=== PATIENT | female | born 1985 | race African-American/Black ===

== ENCOUNTER 2017-01-08 08:02 | Emergency (ER) | payer SELFPAY ==
[~2017-01-08] VITALS: Ht 167.6 cm; Wt 58.5 kg
[~2017-01-08 08:02] MED LIST: CIPR500T94 PO; FLUC100T7 PO; HYDR-2678 PO; LEVO500T38 PO; METR500T PO; SULF1TAB24 PO
[2017-01-08] MEDS ORDERED: KETOROLAC TROMETHAMINE 30 MG/ML SYRINGE. IV ONE (09:00)
[2017-01-08] MEDS ORDERED: IV NORMAL SALINE 1000ML BAG 1,000 ML IV ONE (09:00)
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
[2017-01-08 09:13] LABS: BARBITURATES NEG (NEG); BENZODIAZEPINES NEG (NEG); CANNABINOIDS NEG (NEG); COCAINE POS (NEG); ETHANOL, URINE NEG (NEG); METHADONE NEG (NEG); OPIATES NEG (NEG); PHENCYCLIDINE POS (NEG)
[2017-01-08 09:30] LABS: BASO # 0.1 x10^3/uL (0.0-0.2); BASO % 1 % (0-3); EOS % 2 % (0-3); HEMATOCRIT 36.3 % (36.0-47.0); HEMOGLOBIN 12.3 g/dL (12.0-15.5); LYMPH # 2.5 x10^3/uL (1.0-4.8); LYMPH % 24 % (24-48); MEAN CORPUSCULAR HEMOGLOBIN 32 pg (25-35); MEAN CORPUSCULAR HGB CONC 34 g/dL (31-37); MEAN CORPUSCULAR VOLUME 93 fL (79-100); MONO % 5 % (0-9); NEUT % 68 % (31-73); PLATELET COUNT 631 x10^3/uL (140-400); RED BLOOD COUNT 3.89 x10^6/uL (3.50-5.40); RED CELL DISTRIBUTION WIDTH 15.1 % (11.5-14.5); WHITE BLOOD COUNT 10.7 x10^3/uL (4.0-11.0)
--- NOTE | 2017-01-08 09:32 | ACF ---
Admit Criteria Forms Admit Criteria Forms Admit Criteria Forms INTESTINAL OBSTRUCTION Clinical Indications for Admission to Inpatient Care (Place 'X' for any and all applicable criteria): Admission is indicated for ANY ONE of the following (1)(2)(3)(4)(5): [X]I. Partial bowel obstruction [ ]II. Complete bowel obstruction Extended stay beyond goal length of stay may be needed for(1)(4)(12(: [ ]a) Identified etiology (eg, hernia, volvulus, cancer with obstruction) requiring intervention [ ]b) Gallstone ileus [ ]c) Surgical intervention [ ]d) Acute comorbid illness (eg, electrolyte imbalance, hypovolemia, renal failure) The original [employer] content created by [employer] has been revised. The portions of the content which have been revised are identified through the use of italic text or in bold, and [facility] has neither reviewed nor approved the modified material. All other unmodified content is copyright [employer] [employer]. Please see references footnoted in the original [employer] edition 2016 TIARRA SALMERON Jan 08, 2017 09:32
[2017-01-08 09:33] LABS: OBC FLU VALID
[2017-01-08 09:41] LABS: CREATININE 1.2 mg/dL (0.6-1.0); GFR 62.6
[2017-01-08 09:46] LABS: ALBUMIN 3.5 g/dL (3.4-5.0); ALBUMIN/GLOBULIN RATIO 1.2 (1.0-1.7); TOTAL BILIRUBIN 0.3 mg/dL (0.2-1.0); TOTAL PROTEIN 6.5 g/dL (6.4-8.2)
--- NOTE | 2017-01-08 09:53 | RAD ---
Chest, 2 views, 01/08/2017: History: Cough, congestion, fever The heart size is normal. No pulmonary infiltrates are seen. There is no evidence of pleural fluid. IMPRESSION: No acute cardiopulmonary abnormality is detected.
[2017-01-08] MEDS ORDERED: METR500T PO (09:59)
[2017-01-08] MEDS ORDERED: AZIT250T PO (09:59)
[2017-01-08 10:06] VITALS: BP 129/82
== END 2017-01-08 10:03 | disposition home or self-care (01) ==
LOC: ER 08:02
DX: N76.0 Acute vaginitis (principal); N39.0 Urinary tract infection, site not specified; R05 Cough; R50.9 Fever, unspecified; F12.10 Cannabis abuse, uncomplicated; F16.10 Hallucinogen abuse, uncomplicated; Z88.8 Allergy status to other drugs, medicaments and biological substances; B96.89 Other specified bacterial agents as the cause of diseases classified elsewhere
CPT/HCPCS: 36415; 71020; 80053; 81025; 85027; 87491; 87591; 87804; 96361; 96374; 99285; G0481; J1885; J7030; Q0111

== ENCOUNTER 2017-04-22 13:25 | Emergency (ER) | payer SELFPAY ==
[~2017-04-22] VITALS: Ht 167.6 cm; Wt 54.4 kg
[~2017-04-22 13:25] MED LIST changes: +AZIT250T PO; -LEVO500T38 PO; +LEVO500T59 PO
[2017-04-22 13:30] VITALS: BP 114/58
[2017-04-22 14:13] LABS: BILIRUBIN,URINE NEGATIVE (NEG); GLUCOSE,URINE NEGATIVE (NEG); NITRITE,URINE NEGATIVE (NEG); PH,URINE 6.5; PROTEIN,URINE 30 mg/dL (NEG-TRACE); UROBILINOGEN,URINE 0.2 mg/dL (0.2 mg/dL)
[2017-04-22 14:35] LABS: BACTERIA,URINE MODERATE /HPF (0-FEW); RBC,URINE 0 /HPF (0-2); SQUAMOUS EPITHELIAL CELL,UR MANY /LPF
--- NOTE | 2017-04-22 14:53 | RAD ---
Indication bilateral flank pain. Grayscale imaging targeted to the kidneys was performed. The right kidney measures 12.1 x 4.4 x 3.4 cm and appears normal. No hydronephrosis or mass is seen. The left kidney measures 11.1 x 4.1 x 5.7 cm and also appears normal showing no evidence of hydronephrosis or mass. The bladder was incompletely distended and poorly evaluated on this exam. IMPRESSION: Normal morphologic appearance of the kidneys
[2017-04-22] MEDS ORDERED: METR500T PO (15:04)
[2017-04-22] MEDS ORDERED: NITR100C62 PO (15:04)
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
[2017-04-22] MEDS ORDERED: cefTRIAXone IM 250 MG VIAL IM ONE (15:15)
[2017-04-22] MEDS ORDERED: metroNIDAZOLE 500 MG TABLET PO ONE (15:15)
[2017-04-22] MEDS ORDERED: AZITHROMYCIN 250 MG TABLET. PO ONE (15:15)
== END 2017-04-22 15:45 | disposition home or self-care (01) ==
LOC: ER 13:25
DX: N39.0 Urinary tract infection, site not specified (principal); N76.0 Acute vaginitis; B96.89 Other specified bacterial agents as the cause of diseases classified elsewhere; F14.10 Cocaine abuse, uncomplicated; F16.10 Hallucinogen abuse, uncomplicated; F12.10 Cannabis abuse, uncomplicated; Z88.8 Allergy status to other drugs, medicaments and biological substances
CPT/HCPCS: 76770; 81001; 81025; 87086; 87491; 87591; 96372; 99285; J0696; Q0111; Q0144

== ENCOUNTER 2017-10-20 11:53 | Emergency (ER) | payer OTHER ==
[~2017-10-20] VITALS: Ht 167.6 cm; Wt 56.7 kg
[~2017-10-20 11:53] MED LIST changes: +NITR100C62 PO
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
[2017-10-20] MEDS ORDERED: IV NORMAL SALINE 1000ML BAG 1,000 ML IV SCH (12:41)
[2017-10-20 13:02] LABS: BILIRUBIN,URINE SMALL (NEG); GLUCOSE,URINE NEGATIVE (NEG); NITRITE,URINE NEGATIVE (NEG); PROTEIN,URINE >=300 mg/dL (NEG-TRACE); UROBILINOGEN,URINE 0.2 mg/dL (0.2 mg/dL)
[2017-10-20 13:19] LABS: BACTERIA,URINE MODERATE /HPF (0-FEW); SQUAMOUS EPITHELIAL CELL,UR MANY /LPF
[2017-10-20 13:32] LABS: BASO # 0.1 x10^3/uL (0.0-0.2); BASO % 0 % (0-3); EOS % 1 % (0-3); HEMATOCRIT 39.2 % (36.0-47.0); HEMOGLOBIN 13.2 g/dL (12.0-15.5); LYMPH # 2.3 x10^3/uL (1.0-4.8); LYMPH % 15 % (24-48); MEAN CORPUSCULAR HEMOGLOBIN 32 pg (25-35); MEAN CORPUSCULAR HGB CONC 34 g/dL (31-37); MEAN CORPUSCULAR VOLUME 96 fL (79-100); MONO % 4 % (0-9); NEUT % 81 % (31-73); PLATELET COUNT 452 x10^3/uL (140-400); RED BLOOD COUNT 4.08 x10^6/uL (3.50-5.40); RED CELL DISTRIBUTION WIDTH 13.7 % (11.5-14.5)
[2017-10-20] MEDS: MORPHINE SULFATE 4 MG/ML DISP.SYRIN. IV/SQ PRN ×2 (13:39→14:24)
[2017-10-20] MEDS ORDERED: AZITHROMYCIN 250 MG TABLET. PO ONE (14:00)
[2017-10-20] MEDS ORDERED: cefTRIAXone IM 250 MG VIAL IM ONE (14:00)
[2017-10-20 14:11] LABS: NEG OBC SER NEG; POS OBC SER POS
[2017-10-20 14:12] LABS: CALCIUM 9.3 mg/dL (8.5-10.1); CREATININE 0.9 mg/dL (0.6-1.0); GFR 87.3; POTASSIUM 3.8 mmol/L (3.5-5.1)
[2017-10-20 14:18] LABS: ALBUMIN 3.9 g/dL (3.4-5.0); DIRECT BILIRUBIN 0.1 mg/dL (0.0-0.2); TOTAL BILIRUBIN 0.5 mg/dL (0.2-1.0); TOTAL PROTEIN 7.1 g/dL (6.4-8.2)
[2017-10-20 14:30] VITALS: BP 121/76
[2017-10-20] MEDS ORDERED: METR500T PO (14:43)
[2017-10-20] MEDS ORDERED: metroNIDAZOLE 500 MG TABLET PO ONE (15:00)
[2017-10-20 15:05] LABS: % BASOS 1 % (0-3); % EOS 1 % (0-5); PLT ESTIMATE INCREASED (ADEQUATE)
== END 2017-10-20 15:14 | disposition home or self-care (01) ==
LOC: ER 11:53
DX: A59.9 Trichomoniasis, unspecified (principal); F12.10 Cannabis abuse, uncomplicated; F14.10 Cocaine abuse, uncomplicated; F16.10 Hallucinogen abuse, uncomplicated; Z88.4 Allergy status to anesthetic agent
CPT/HCPCS: 36415; 80048; 80076; 81001; 81025; 84703; 85007; 85025; 87086; 87491; 87591; 96361; 96372; 96374; 96376; 99284; J0696; J2270; J7030; Q0111; Q0144

== ENCOUNTER 2018-10-02 08:32 | Emergency (ER) | payer OTHER ==
[~2018-10-02] VITALS: Ht 165.1 cm; Wt 54.5 kg
[2018-10-02 08:35] VITALS: BP 126/84
[2018-10-02] MEDS ORDERED: IV NORMAL SALINE 1000ML BAG 1,000 ML IV SCH (09:21)
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
[2018-10-02 09:40] LABS: BARBITURATES NEG (NEG); BENZODIAZEPINES NEG (NEG); CANNABINOIDS NEG (NEG); COCAINE POS (NEG); METHADONE NEG (NEG); OPIATES NEG (NEG); PHENCYCLIDINE POS (NEG)
[2018-10-02 09:41] LABS: AMPHETAMINE/METHAMPHETAMINE NEG (NEG)
[2018-10-02 10:07] LABS: BASO # 0.1 x10^3/uL (0.0-0.2); BASO % 1 % (0-3); EOS # 0.1 x10^3/uL (0.0-0.7); EOS % 1 % (0-3); HEMATOCRIT 36.7 % (36.0-47.0); HEMOGLOBIN 12.4 g/dL (12.0-15.5); LYMPH # 2.3 x10^3/uL (1.0-4.8); LYMPH % 21 % (24-48); MEAN CORPUSCULAR HEMOGLOBIN 33 pg (25-35); MEAN CORPUSCULAR HGB CONC 34 g/dL (31-37); MEAN CORPUSCULAR VOLUME 99 fL (79-100); MONO # 0.5 x10^3/uL (0.0-1.1); MONO % 5 % (0-9); NEUT # 8.2 x10^3uL (1.8-7.7); NEUT % 73 % (31-73); PLATELET COUNT 510 x10^3/uL (140-400); RED BLOOD COUNT 3.72 x10^6/uL (3.50-5.40); RED CELL DISTRIBUTION WIDTH 14.2 % (11.5-14.5); WHITE BLOOD COUNT 11.2 x10^3/uL (4.0-11.0)
[2018-10-02 10:10] LABS: BILIRUBIN,URINE SMALL (NEG); CLARITY,URINE CLEAR; COLOR,URINE AMBER; NITRITE,URINE NEGATIVE (NEG); PROTEIN,URINE >=300 mg/dL (NEG-TRACE); UROBILINOGEN,URINE 0.2 mg/dL (0.2 mg/dL)
[2018-10-02 10:11] LABS: SQUAMOUS EPITHELIAL CELL,UR MANY /LPF
[2018-10-02 10:12] LABS: BACTERIA,URINE MANY /HPF (0-FEW)
[2018-10-02 10:13] LABS: RBC,URINE OCC /HPF (0-2)
[2018-10-02] MEDS ORDERED: cefTRIAXone IM 250 MG VIAL IM ONE (10:15)
[2018-10-02] MEDS ORDERED: AZITHROMYCIN 250 MG TABLET. PO ONE (10:15)
[2018-10-02 10:20] LABS: CALCIUM 9.3 mg/dL (8.5-10.1); CREATININE 0.8 mg/dL (0.6-1.0); GFR 99.4; POTASSIUM 3.9 mmol/L (3.5-5.1)
[2018-10-02 10:26] LABS: ALBUMIN 3.7 g/dL (3.4-5.0); ALBUMIN/GLOBULIN RATIO 1.2 (1.0-1.7); TOTAL BILIRUBIN 0.4 mg/dL (0.2-1.0); TOTAL PROTEIN 6.9 g/dL (6.4-8.2)
--- NOTE | 2018-10-02 10:50 | EKG ---
[facility] [address] [place] [address] Test Date: 2018-10-02 Test Time: 09:51:47 Pat Name: MALOU BRUNER Department: Room: Gender: F Psychiatric Technician: : 1985 Requested By: FANTA JAFFE Order Number: [id number] Reading MD: Zacarias Jade Measurements Intervals Carmen Rate: 66 P: 70 OK: 140 QRS: 70 QRSD: 74 T: 70 QT: 422 QTc: 444 Interpretive Statements SINUS RHYTHM NORMAL ECG Electronically Signed On 10-07-2018 10:40:18 [employer] by Zacarias Jade
[2018-10-02] MEDS ORDERED: METR500T PO (10:54)
[2018-10-04 13:16] LABS: GC PROBE Negative (Negative)
== END 2018-10-02 11:10 | disposition home or self-care (01) ==
LOC: ER 08:32
DX: R42 Dizziness and giddiness (principal); N76.0 Acute vaginitis; B96.89 Other specified bacterial agents as the cause of diseases classified elsewhere; R19.7 Diarrhea, unspecified; Z88.4 Allergy status to anesthetic agent
CPT/HCPCS: 36415; 80053; 80307; 81001; 81025; 83690; 85025; 87086; 87491; 87591; 93005; 96360; 96372; 99284; J0696; J7030; Q0111; Q0144

== ENCOUNTER 2019-07-25 19:21 | Inpatient (IN) | payer OTHER ==
[~2019-07-25] VITALS: Ht 167.6 cm; Wt 59.2 kg
[2019-07-25] MEDS ORDERED: IV NORMAL SALINE 1000ML BAG 1,000 ML IV SCH (19:47)
[2019-07-25 19:57] LABS: BASO # 0.1 x10^3/uL (0.0-0.2); BASO % 0 % (0-3); EOS % 0 % (0-3); HEMATOCRIT 41.3 % (36.0-47.0); HEMOGLOBIN 14.1 g/dL (12.0-15.5); LYMPH % 5 % (24-48); MEAN CORPUSCULAR HEMOGLOBIN 32 pg (25-35); MEAN CORPUSCULAR HGB CONC 34 g/dL (31-37); MEAN CORPUSCULAR VOLUME 94 fL (79-100); MONO % 5 % (0-9); NEUT # 18.4 x10^3/uL (1.8-7.7); NEUT % 90 % (31-73); PLATELET COUNT 498 x10^3/uL (140-400); RED BLOOD COUNT 4.39 x10^6/uL (3.50-5.40); RED CELL DISTRIBUTION WIDTH 14.4 % (11.5-14.5); WHITE BLOOD COUNT 20.5 x10^3/uL (4.0-11.0)
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
[2019-07-25 19:58] LABS: BILIRUBIN,URINE NEGATIVE (NEG); CLARITY,URINE CLOUDY; COLOR,URINE YELLOW; NITRITE,URINE POSITIVE (NEG); PH,URINE 5.5; PROTEIN,URINE 100 mg/dL (NEG-TRACE)
[2019-07-25] MEDS ORDERED: MORPHINE SULFATE 4 MG/ML VIAL. IV ONE ×2 (20:00→21:30)
[2019-07-25] MEDS ORDERED: ACETAMINOPHEN 500 MG TABLET PO ONE (20:00)
[2019-07-25] MEDS ORDERED: ONDANSETRON PF 4 MG/2 ML VIAL. IV ONE (20:00)
[2019-07-25 20:07] LABS: BACTERIA,URINE MODERATE /HPF (0-FEW); SQUAMOUS EPITHELIAL CELL,UR MANY /LPF; WBC,URINE TNTC /HPF (0-4)
[2019-07-25 20:15] LABS: CALCIUM 9.6 mg/dL (8.5-10.1); CREATININE 1.3 mg/dL (0.6-1.0); GFR 56.4; POTASSIUM 3.7 mmol/L (3.5-5.1)
[2019-07-25 20:22] LABS: ALBUMIN 3.3 g/dL (3.4-5.0); ALBUMIN/GLOBULIN RATIO 0.8 (1.0-1.7); TOTAL BILIRUBIN 0.3 mg/dL (0.2-1.0); TOTAL PROTEIN 7.7 g/dL (6.4-8.2)
[2019-07-25 20:28] LABS: % BANDS 4 % (0-9); % LYMPHS 8 % (24-48); % MONOS 2 % (0-10); % SEGS 86 % (35-66); PLT ESTIMATE INCREASED (ADEQUATE)
[2019-07-25] MEDS ORDERED: cefTRIAXone IV Push 1 GM VIAL. IVP ONE (20:45)
--- NOTE | 2019-07-25 21:00 | RAD ---
CT scan of the abdomen and pelvis without contrast 07/25/2019 CLINICAL HISTORY: Right flank pain. TECHNIQUE: Unenhanced, contiguous, 2 mm axial sections were obtained through the abdomen and pelvis. One or more of the following individualized dose reduction techniques were utilized for this study: 1. Automated exposure control. 2. Adjustment of the mA and/or kV according to patient size. 3. Use of iterative reconstruction technique. FINDINGS: Comparison study is dated 09/03/2016. Images through the lung bases are within normal limits. The liver, spleen, pancreas, adrenal glands and left kidney are within normal limits. The right kidney is enlarged. Increased density is seen within the fat surrounding the right kidney. The right ureter is mildly dilated. The right ureter is difficult to follow into the pelvis. No ureteral calculus is seen. The CT findings could reflect recently relieved obstruction of the right collecting system, a nonvisualized distal right ureteral calculus or could be seen with pyelonephritis. Clinical correlation is recommended. The abdominal aorta tapers normally. The gallbladder is contracted. No free fluid or free air is seen within the abdomen. Postsurgical changes are seen involving the abdomen. The appendix is well-visualized and is within normal limits. Images through the pelvis demonstrate the urinary bladder distended with urine. No distal ureteral calculus is seen. No free fluid is seen. Minimal S-shaped curvature of the thoracolumbar spine is seen. IMPRESSION: The right kidney is enlarged. Increased density is seen within the fat surrounding the right kidney. The right ureter is mildly dilated. No ureteral calculus is seen. These CT findings could be seen with recently relieved obstruction of the right collecting system, a nonvisualized distal right ureteral calculus or could be seen with pyelonephritis. Clinical correlation is recommended. Electronically signed by: Lenny García MD (07/25/2019 8:57 PM) [facility]
[2019-07-25 21:12] LABS: INFLUENZA A PATIENT NEGATIVE (NEGATIVE); INFLUENZA B PATIENT NEGATIVE (NEGATIVE)
[2019-07-25] MEDS ORDERED: ONDANSETRON PF 4 MG/2 ML VIAL. IV PRN (21:30)
[2019-07-25] MEDS: IV NORMAL SALINE 1000ML BAG 1,000 ML IV SCH (22:00)
[2019-07-25 22:42] VITALS: BP 114/61
--- NOTE | 2019-07-25 22:50 | NUR ---
Pt. arrived on floor at 2243 by wheelchair from ED. Pt. A&Ox4, RA and is able to walk to bed without help. Pt. doesn't complain of pain. VS stable with HR slightly elevated. Admission questions and assessment done at this time. Call light within reach, bed in lowest position. Will continue to monitor.
[2019-07-26] VITALS (7 sets, daily range): BP systolic 98–113; BP diastolic 54–75
[2019-07-26] MEDS: MORPHINE SULFATE 4 MG/ML VIAL. IV PRN ×5 (01:11→19:36)
--- NOTE | 2019-07-26 03:00 | NUR ---
Pt. screened positive on sepsis screen. ICU nurse was paged and lactic was ordered. Will continue to monitor.
[2019-07-26] MEDS: ACETAMINOPHEN 325 MG TABLET. PO PRN ×3 (03:06→19:36)
[2019-07-26] MEDS ORDERED: MULT1TAB52 PO (06:18)
[2019-07-26] MEDS: IV NORMAL SALINE 1000ML BAG 1,000 ML IV SCH ×2 (06:20→16:56)
[2019-07-26 06:42] LABS: BASO % 0 % (0-3); EOS % 0 % (0-3); HEMATOCRIT 39.3 % (36.0-47.0); HEMOGLOBIN 13.4 g/dL (12.0-15.5); LYMPH # 0.8 x10^3/uL (1.0-4.8); LYMPH % 4 % (24-48); MEAN CORPUSCULAR HEMOGLOBIN 32 pg (25-35); MEAN CORPUSCULAR HGB CONC 34 g/dL (31-37); MEAN CORPUSCULAR VOLUME 95 fL (79-100); MONO # 1.2 x10^3/uL (0.0-1.1); MONO % 6 % (0-9); NEUT % 90 % (31-73); PLATELET COUNT 401 x10^3/uL (140-400); RED BLOOD COUNT 4.15 x10^6/uL (3.50-5.40); RED CELL DISTRIBUTION WIDTH 14.5 % (11.5-14.5)
[2019-07-26 06:49] LABS: CALCIUM 8.8 mg/dL (8.5-10.1); CREATININE 1.1 mg/dL (0.6-1.0); GFR 68.4; POTASSIUM 3.7 mmol/L (3.5-5.1)
[2019-07-26] MEDS ORDERED: PIP/TAZO PER PHARMACY MC PRN (09:30)
[2019-07-26] MEDS ORDERED: oxyCODONE/APAP 5/325 1 TAB TABLET PO PRN (09:30)
--- NOTE | 2019-07-26 11:16 | PDOC1 ---
History and Physical Date of Admission Date of Admission DATE: 07/26/19 TIME: 11:10 Identification/Chief Complaint Chief Complaint cloudy urine,fevers at home Source Source: Caregiver, Chart review, Patient History of Present Illness History of Present Illness 34 AA female, cloudy and foul smelling urine at home with fevers and chills at home, 103 temp. UTI with pyelonephritis on UA and imaging, respectively, Tmax 103 here, some nausea, RT sided flank pain, corresponds to CT findings on rt side.. NKDA, never had UTI or pyelo before. RN calls ar 2/2 GNR positive BC Past Medical History Cardiovascular: No pertinent hx Pulmonary: No pertinent hx GI: No pertinent hx Heme/Onc: No pertinent hx Hepatobiliary: No pertinent hx Psych: No pertinent hx Musculoskeletal: low back pain Rheumatologic: No pertinent hx Infectious disease: Other (trichomoniasis and chlamydia in past) Past Surgical History Past Surgical History: No pertinent history Family History Family History: Hypertension Social History Smoke: No ALCOHOL: none Drugs: None, Other Current Problem List Problem List Problems Medical Problems: (1) Pyelonephritis Status: Acute Current Medications Current Medications Current Medications Sodium Chloride 1,000 ml @ 1,000 mls/hr Q1H IV Last administered on 07/25/19at 20:35; Start 07/25/19 at 19:47; Stop 07/25/19 at 20:46; Status DC Ondansetron HCl (Zofran) 4 mg 1X ONCE IV Last administered on 07/25/19at 20:35; Start 07/25/19 at 20:00; Stop 07/25/19 at 20:01; Status DC Morphine Sulfate (Morphine Sulfate) 4 mg 1X ONCE IV Last administered on 07/25/19at 20:35; Start 07/25/19 at 20:00; Stop 07/25/19 at 20:01; Status DC Acetaminophen (Tylenol) 1,000 mg 1X ONCE PO Last administered on 07/25/19at 20:35; Start 07/25/19 at 20:00; Stop 07/25/19 at 20:01; Status DC Ceftriaxone Sodium (Rocephin) 1 gm 1X ONCE IVP Last administered on 07/25/19at 22:27; Start 07/25/19 at 20:45; Stop 07/25/19 at 20:46; Status DC Morphine Sulfate (Morphine Sulfate) 4 mg 1X ONCE IV Last administered on 07/25/19at 22:27; Start 07/25/19 at 21:30; Stop 07/25/19 at 21:31; Status DC Ondansetron HCl (Zofran) 4 mg PRN Q8HRS PRN IV NAUSEA/VOMITING 1ST CHOICE Last administered on 07/26/19at 03:06; Start 07/25/19 at 21:30; Stop 07/26/19 at 09:25; Status DC Morphine Sulfate (Morphine Sulfate) 4 mg PRN Q2HR PRN IV SEVERE PAIN 7-10 Last administered on 07/26/19at 08:57; Start 07/25/19 at 21:30; Stop 07/26/19 at 21:29 Sodium Chloride 1,000 ml @ 125 mls/hr Q8H IV Last administered on 07/26/19at 06:20; Start 07/25/19 at 22:00; Stop 07/26/19 at 21:59 Acetaminophen (Tylenol) 650 mg PRN Q4HRS PRN PO FEVER Last administered on 07/26/19at 08:57; Start 07/25/19 at 21:30; Stop 07/26/19 at 21:29 Ondansetron HCl (Zofran) 4 mg PRN Q6HRS PRN IV NAUSEA/VOMITING 1ST CHOICE; Start 07/26/19 at 09:30 Oxycodone/ Acetaminophen (Percocet 5/325) 1 tab PRN Q4HRS PRN PO MILD PAIN 1-3; Start 07/26/19 at 09:30 Oxycodone/ Acetaminophen (Percocet 10/325) 1 tab PRN Q4HRS PRN PO MODERATE PAIN, SEVERE PAIN; Start 07/26/19 at 09:30 Piperacillin Sod/ Tazobactam Sod (Zosyn Per Pharmacy) 1 each PRN DAILY PRN MC SEE COMMENTS; Start 07/26/19 at 09:30 Multivitamins (Thera M Plus) 1 tab DAILY PO ; Start 07/26/19 at 10:00 Piperacillin Sod/ Tazobactam Sod 3.375 gm/Sodium Chloride 50 ml @ 100 mls/hr Q6HRS IV ; Start 07/26/19 at 10:00 Active Scripts Active Flagyl (Metronidazole) 500 Mg Tablet 1 Tab PO BID Flagyl (Metronidazole) 500 Mg Tablet 1 Tab PO BID Macrobid 100 Mg Capsule (Nitrofurantoin Monohyd/M-Cryst) 100 Mg Capsule 1 Cap PO BID Flagyl (Metronidazole) 500 Mg Tablet 1 Tab PO BID Zithromax (Azithromycin) 250 Mg Tablet 250 Mg PO DAILY 2 tablets today then 1 tablet daily until gone Flagyl (Metronidazole) 500 Mg Tablet 1 Tab PO BID Bactrim Ds Tablet (Sulfamethoxazole/Trimethoprim) 1 Each Tablet 1 Tab PO BID Flagyl (Metronidazole) 500 Mg Tablet 1 Tab PO BID Reported Multivitamins (Multivitamin) 1 Each Tablet 1 Each PO DAILY Levaquin (Levofloxacin) 500 Mg Tablet 1 Tab PO DAILY Lortab 5-325 mg Tablet (Hydrocodone/Acetaminophen) 1 Each Tablet 1 Tab PO PRN Q6HRS PRN Diflucan (Fluconazole) 100 Mg Tablet 100 Mg PO DAILY Allergies Allergies: Coded Allergies: fentanyl (Verified Adverse Reaction, Intermediate, itching, 08/29/16) ROS Review of System as per hPI< rest of 14 pt neg Physical Exam General: Alert, Oriented X3, Cooperative, No acute distress HEENT: Atraumatic, PERRLA, EOMI Lungs: Clear to auscultation, Normal air movement Heart: S1S2, RRR, no thrills, no gallops, no murmurs Cardiovascular: S1, S2 Breasts: Normal, Rt breast nml w/o mass, Lt breast nml w/o mass, Nipples normal Abdomen: Soft, Other (rt sided flank pain) Extremities: No clubbing, No cyanosis, No edema, Normal pulses, No tenderness/swelling Skin: No rashes, No breakdown, No significant lesion Neuro: Normal gait, Normal speech, Strength at 5/5 X4 ext, Normal tone, Sensation intact, Cranial nerves 3-12 NL, Reflexes 2+ Psych/Mental Status: Mental status NL, Mood NL Vitals Vitals Vital Signs Date Time Temp Pulse Resp B/P (MAP) Pulse Ox O2 Delivery O2 Flow Rate FiO2 07/26/19 08:57 20 Room Air 07/26/19 07:00 98.6 79 102/54 (70) 97 98.6 Labs Labs Laboratory Tests Test 07/25/19 19:34 07/25/19 19:40 07/25/19 19:43 07/25/19 20:43 Urine Collection Type Unknown Urine Color Yellow Urine Clarity Cloudy Urine pH 5.5 Urine Specific [place] 1.020 Urine Protein 100 mg/dL (NEG-TRACE) Urine Glucose (UA) 100 mg/dL (NEG) Urine Ketones (Stick) Trace mg/dL (NEG) Urine Blood Large (NEG) Urine Nitrite Positive (NEG) Urine Bilirubin Negative (NEG) Urine Urobilinogen Dipstick 1.0 mg/dL (0.2 mg/dL) Urine Leukocyte Esterase Large (NEG) Urine RBC 6-10 /HPF (0-2) Urine WBC Tntc /HPF (0-4) Urine Squamous Epithelial Cells Many /LPF Urine Bacteria Moderate /HPF (0-FEW) Urine Mucus Marked /LPF White Blood Count 20.5 x10^3/uL (4.0-11.0) Red Blood Count 4.39 x10^6/uL (3.50-5.40) Hemoglobin 14.1 g/dL (12.0-15.5) Hematocrit 41.3 % (36.0-47.0) Mean Corpuscular Volume 94 fL (79-100) Mean Corpuscular Hemoglobin 32 pg (25-35) Mean Corpuscular Hemoglobin Concent 34 g/dL (31-37) Red Cell Distribution Width 14.4 % (11.5-14.5) Platelet Count 498 x10^3/uL (140-400) Neutrophils (%) (Auto) 90 % (31-73) Lymphocytes (%) (Auto) 5 % (24-48) Monocytes (%) (Auto) 5 % (0-9) Eosinophils (%) (Auto) 0 % (0-3) Basophils (%) (Auto) 0 % (0-3) Neutrophils # (Auto) 18.4 x10^3/uL (1.8-7.7) Lymphocytes # (Auto) 1.0 x10^3/uL (1.0-4.8) Monocytes # (Auto) 1.0 x10^3/uL (0.0-1.1) Eosinophils # (Auto) 0.0 x10^3/uL (0.0-0.7) Basophils # (Auto) 0.1 x10^3/uL (0.0-0.2) Segmented Neutrophils % 86 % (35-66) Band Neutrophils % 4 % (0-9) Lymphocytes % 8 % (24-48) Monocytes % 2 % (0-10) Platelet Estimate Increased (ADEQUATE) Sodium Level 137 mmol/L (136-145) Potassium Level 3.7 mmol/L (3.5-5.1) Chloride Level 101 mmol/L (98-107) Carbon Dioxide Level 25 mmol/L (21-32) Anion Gap 11 (6-14) Blood Urea Nitrogen 7 mg/dL (7-20) Creatinine 1.3 mg/dL (0.6-1.0) Estimated GFR (Cockcroft-Gault) 56.4 BUN/Creatinine Ratio 5 (6-20) Glucose Level 148 mg/dL (70-99) Calcium Level 9.6 mg/dL (8.5-10.1) Total Bilirubin 0.3 mg/dL (0.2-1.0) Aspartate Amino Transf (AST/SGOT) 10 U/L (15-37) Alanine Aminotransferase (ALT/SGPT) 12 U/L (14-59) Alkaline Phosphatase 90 U/L (46-116) Total Protein 7.7 g/dL (6.4-8.2) Albumin 3.3 g/dL (3.4-5.0) Albumin/Globulin Ratio 0.8 (1.0-1.7) Lipase 61 U/L (73-393) Bedside Urine HCG, Qualitative Hcg negative (Negative) Influenza Type A Antigen Negative (NEGATIVE) Influenza Type B Antigen Negative (NEGATIVE) Test 07/26/19 06:20 White Blood Count 21.0 x10^3/uL (4.0-11.0) Red Blood Count 4.15 x10^6/uL (3.50-5.40) Hemoglobin 13.4 g/dL (12.0-15.5) Hematocrit 39.3 % (36.0-47.0) Mean Corpuscular Volume 95 fL (79-100) Mean Corpuscular Hemoglobin 32 pg (25-35) Mean Corpuscular Hemoglobin Concent 34 g/dL (31-37) Red Cell Distribution Width 14.5 % (11.5-14.5) Platelet Count 401 x10^3/uL (140-400) Neutrophils (%) (Auto) 90 % (31-73) Lymphocytes (%) (Auto) 4 % (24-48) Monocytes (%) (Auto) 6 % (0-9) Eosinophils (%) (Auto) 0 % (0-3) Basophils (%) (Auto) 0 % (0-3) Neutrophils # (Auto) 19.0 x10^3/uL (1.8-7.7) Lymphocytes # (Auto) 0.8 x10^3/uL (1.0-4.8) Monocytes # (Auto) 1.2 x10^3/uL (0.0-1.1) Eosinophils # (Auto) 0.0 x10^3/uL (0.0-0.7) Basophils # (Auto) 0.0 x10^3/uL (0.0-0.2) Sodium Level 136 mmol/L (136-145) Potassium Level 3.7 mmol/L (3.5-5.1) Chloride Level 103 mmol/L (98-107) Carbon Dioxide Level 21 mmol/L (21-32) Anion Gap 12 (6-14) Blood Urea Nitrogen 7 mg/dL (7-20) Creatinine 1.1 mg/dL (0.6-1.0) Estimated GFR (Cockcroft-Gault) 68.4 Glucose Level 126 mg/dL (70-99) Lactic Acid Level 0.5 mmol/L (0.4-2.0) Calcium Level 8.8 mg/dL (8.5-10.1) Laboratory Tests Test 07/25/19 19:34 07/25/19 19:40 07/25/19 19:43 07/25/19 20:43 Urine Collection Type Unknown Urine Color Yellow Urine Clarity Cloudy Urine pH 5.5 Urine Specific [place] 1.020 Urine Protein 100 mg/dL (NEG-TRACE) Urine Glucose (UA) 100 mg/dL (NEG) Urine Ketones (Stick) Trace mg/dL (NEG) Urine Blood Large (NEG) Urine Nitrite Positive (NEG) Urine Bilirubin Negative (NEG) Urine Urobilinogen Dipstick 1.0 mg/dL (0.2 mg/dL) Urine Leukocyte Esterase Large (NEG) Urine RBC 6-10 /HPF (0-2) Urine WBC Tntc /HPF (0-4) Urine Squamous Epithelial Cells Many /LPF Urine Bacteria Moderate /HPF (0-FEW) Urine Mucus Marked /LPF White Blood Count 20.5 x10^3/uL (4.0-11.0) Red Blood Count 4.39 x10^6/uL (3.50-5.40) Hemoglobin 14.1 g/dL (12.0-15.5) Hematocrit 41.3 % (36.0-47.0) Mean Corpuscular Volume 94 fL (79-100) Mean Corpuscular Hemoglobin 32 pg (25-35) Mean Corpuscular Hemoglobin Concent 34 g/dL (31-37) Red Cell Distribution Width 14.4 % (11.5-14.5) Platelet Count 498 x10^3/uL (140-400) Neutrophils (%) (Auto) 90 % (31-73) Lymphocytes (%) (Auto) 5 % (24-48) Monocytes (%) (Auto) 5 % (0-9) Eosinophils (%) (Auto) 0 % (0-3) Basophils (%) (Auto) 0 % (0-3) Neutrophils # (Auto) 18.4 x10^3/uL (1.8-7.7) Lymphocytes # (Auto) 1.0 x10^3/uL (1.0-4.8) Monocytes # (Auto) 1.0 x10^3/uL (0.0-1.1) Eosinophils # (Auto) 0.0 x10^3/uL (0.0-0.7) Basophils # (Auto) 0.1 x10^3/uL (0.0-0.2) Segmented Neutrophils % 86 % (35-66) Band Neutrophils % 4 % (0-9) Lymphocytes % 8 % (24-48) Monocytes % 2 % (0-10) Platelet Estimate Increased (ADEQUATE) Sodium Level 137 mmol/L (136-145) Potassium Level 3.7 mmol/L (3.5-5.1) Chloride Level 101 mmol/L (98-107) Carbon Dioxide Level 25 mmol/L (21-32) Anion Gap 11 (6-14) Blood Urea Nitrogen 7 mg/dL (7-20) Creatinine 1.3 mg/dL (0.6-1.0) Estimated GFR (Cockcroft-Gault) 56.4 BUN/Creatinine Ratio 5 (6-20) Glucose Level 148 mg/dL (70-99) Calcium Level 9.6 mg/dL (8.5-10.1) Total Bilirubin 0.3 mg/dL (0.2-1.0) Aspartate Amino Transf (AST/SGOT) 10 U/L (15-37) Alanine Aminotransferase (ALT/SGPT) 12 U/L (14-59) Alkaline Phosphatase 90 U/L (46-116) Total Protein 7.7 g/dL (6.4-8.2) Albumin 3.3 g/dL (3.4-5.0) Albumin/Globulin Ratio 0.8 (1.0-1.7) Lipase 61 U/L (73-393) Bedside Urine HCG, Qualitative Hcg negative (Negative) Influenza Type A Antigen Negative (NEGATIVE) Influenza Type B Antigen Negative (NEGATIVE) Test 07/26/19 06:20 White Blood Count 21.0 x10^3/uL (4.0-11.0) Red Blood Count 4.15 x10^6/uL (3.50-5.40) Hemoglobin 13.4 g/dL (12.0-15.5) Hematocrit 39.3 % (36.0-47.0) Mean Corpuscular Volume 95 fL (79-100) Mean Corpuscular Hemoglobin 32 pg (25-35) Mean Corpuscular Hemoglobin Concent 34 g/dL (31-37) Red Cell Distribution Width 14.5 % (11.5-14.5) Platelet Count 401 x10^3/uL (140-400) Neutrophils (%) (Auto) 90 % (31-73) Lymphocytes (%) (Auto) 4 % (24-48) Monocytes (%) (Auto) 6 % (0-9) Eosinophils (%) (Auto) 0 % (0-3) Basophils (%) (Auto) 0 % (0-3) Neutrophils # (Auto) 19.0 x10^3/uL (1.8-7.7) Lymphocytes # (Auto) 0.8 x10^3/uL (1.0-4.8) Monocytes # (Auto) 1.2 x10^3/uL (0.0-1.1) Eosinophils # (Auto) 0.0 x10^3/uL (0.0-0.7) Basophils # (Auto) 0.0 x10^3/uL (0.0-0.2) Sodium Level 136 mmol/L (136-145) Potassium Level 3.7 mmol/L (3.5-5.1) Chloride Level 103 mmol/L (98-107) Carbon Dioxide Level 21 mmol/L (21-32) Anion Gap 12 (6-14) Blood Urea Nitrogen 7 mg/dL (7-20) Creatinine 1.1 mg/dL (0.6-1.0) Estimated GFR (Cockcroft-Gault) 68.4 Glucose Level 126 mg/dL (70-99) Lactic Acid Level 0.5 mmol/L (0.4-2.0) Calcium Level 8.8 mg/dL (8.5-10.1) VTE Prophylaxis Ordered VTE Prophylaxis Devices: Yes VTE Pharmacological Prophylaxi: Yes Assessment/Plan Assessment/Plan SYmptomatic UTI with pyelonephritis, DIlated RT ureter- no radio opaque stone, need to r.o radioluscent stone with sono GNR bacteremia 2/2 bottles PLAN: Admit 2 mN< MEd surg floor ok Zosyn ID consult FOllow BC - ID and sensitivities OK for reg diet [place] control CHeck sono for radioluscent stone, RT ureter is dilated Dw her FUll code no real home meds to reocncile STERLING NORTON MD Jul 26, 2019 11:16
[2019-07-26] MEDS: PROCHLORPERAZINE 10 MG/2 ML VIAL. IV PRN (12:08)
[2019-07-26] MEDS: PIPERACILLIN/TAZOBACTAM 3.375 GM in IV NORMAL SALINE 50ML 50 ML IV SCH ×3 (12:09→23:34)
[2019-07-26] MEDS: MULTIVITAMIN with MINERAL TABLET. PO SCH (12:10)
[2019-07-26] MEDS: oxyCODONE/APAP 10/325 1 TAB TABLET PO PRN ×3 (12:10→21:03)
--- NOTE | 2019-07-26 13:05 | CONS ---
DATE OF CONSULTATION: 07/26/2019 INFECTIOUS DISEASE CONSULT REFERRING PHYSICIAN: Blanca Devine MD REASON FOR CONSULTATION: Gram-negative sepsis. HISTORY OF PRESENT ILLNESS: A 34-year-old -[place] female usually in normal health, with no significant past medical history, presented to the ER with fevers, chills, nausea, cloudy urine, burning while passing urine. She was found to have a temperature of 103, white count was elevated, mild MARIN. Urine positive for leukocyte esterase, wbc's too numerous to count. Blood culture positive 2 out of 2 with gram-negative jaelyn. CT abdomen shows a right kidney is enlarged, increased density seen in the fat surrounding the right kidney, the right ureter is mildly dilated, no ureteral calculus is seen. The CT finding should be seen with recently relieved obstruction of the right collecting system or non-visualized distal right ureteral calculus or could be seen with pyelonephritis. The patient was started on IV Zosyn. ID consult has been requested for antibiotic management. The patient has chills, fever is improving, still has some nausea, no vomiting, denies any abdominal pain, continues to still have burning while passing urine, no blood in urine. No recent antibiotics. No recent procedures. PAST MEDICAL HISTORY: Chronic low back pain; history of trichomoniasis; chlamydia otherwise negative. No history of renal stone. PAST SURGICAL HISTORY: None. FAMILY HISTORY: Renal disease, hypertension. SOCIAL HISTORY: Denies smoking. ETOH, none. Drugs, none. CURRENT MEDICATIONS: IV Zosyn. Other medications reviewed in medication list. The patient got a dose of ceftriaxone in the ER. ALLERGIES: FENTANYL, CAUSING ITCHING. REVIEW OF SYSTEMS: Negative except for above in HPI. PHYSICAL EXAMINATION: VITAL SIGNS: T-max 103.2, current temperature 98.5; pulse 84; respiratory rate 16; blood pressure 100/62; oxygen saturation 98% on room air. GENERAL: Alert and oriented x 3 female, lying in bed comfortably, in no acute distress, cooperative, pleasant. HEENT: Normocephalic, atraumatic. Anicteric. No thrush. NECK: Supple. No JVD. LUNGS: Clear bilaterally. No wheezing. HEART: S1, S2. No gallops, murmurs or rubs. ABDOMEN: Soft, nontender, nondistended. No rebound, no guarding. EXTREMITIES: No edema, no cyanosis, no clubbing. BACK: Reveals normal curvature. No CVA tenderness. DERMATOLOGIC: Warm, dry. No generalized rash. Multiple tattoos. NEUROLOGIC: Alert and oriented x 3. Grossly nonfocal. PSYCHIATRIC: Cooperative. Appropriate mood and affect. LABORATORY DATA: WBC 21, was 20.5; hemoglobin 13.4; hematocrit 39.3; platelets 401; neutrophils 90%. Sodium 136; potassium 3.7; chloride 103; bicarbonate 21; BUN 7; creatinine 1.1, was 1.3; glucose 126. Lactate 0.5. Albumin 3.3. UA shows large leukocyte esterase, wbc's too numerous to count. Beta hCG negative. Influenza screen negative. Blood culture on 07/25/2019, 2 out of 2 bottles positive for gram-negative jaelyn; ID and NOLBERTO pending at this time. IMAGING: CT abdomen and pelvis as above. IMPRESSION: 1. Fever. 2. Leukocytosis. 3. Gram-negative sepsis, source genitourinary. 4. Urinary tract infection. 5. Likely nephrolithiasis. 6. Possible pyelonephritis. 7. Acute kidney injury, improving. 8. Nausea and vomiting, improving. RECOMMENDATIONS: 1. Continue Zosyn. 2. Repeat blood cultures. 3. Follow up ID and NOLBERTO of gram-negative jaelyn in blood. 4. Continue supportive care. 5. Discussed with family at bedside. Thank you, Dr. Devine, for consultation Infectious Disease to participate in this patient's care. We will follow along with you. EMIL AVILA MD DR: OLIVA/alycia JOB#: [id number] / [id number]
[2019-07-26] MEDS: ONDANSETRON PF 4 MG/2 ML VIAL. IV PRN (16:54)
[2019-07-26] MEDS: LACTOBACILLUS RHAMNOSUS GG 1 CAPSULE. PO SCH (21:00)
[2019-07-27] MEDS: oxyCODONE/APAP 10/325 1 TAB TABLET PO PRN ×5 (03:19→22:14)
[2019-07-27 03:22] VITALS: BP 123/71
[2019-07-27] MEDS: PIPERACILLIN/TAZOBACTAM 3.375 GM in IV NORMAL SALINE 50ML 50 ML IV SCH ×3 (05:31→18:10)
[2019-07-27 07:00] VITALS: BP 111/63
--- NOTE | 2019-07-27 07:47 | RAD ---
RENAL COMPLETE BILATERAL History: Pyelonephritis Comparison: July 25, 2019 CT exam and renal ultrasound April 22, 2017 Findings: Multiple sonographic images of the kidneys and urinary bladder submitted. Right kidney measured 13 x 5.7 x 4.1 cm. Left kidney measured 11.2 x 5.4 x 4.5 cm. There is no hydronephrosis of either kidney. There is a focus of different echogenicity which is somewhat more hyperechoic of the mid right kidney. Ureteral jets are seen bilaterally in the urinary bladder lumen. Impression: 1. There is no hydronephrosis of either kidney. There is a focus of relative increased echogenicity of the mid right kidney and right kidney is larger than the left, could be seen with focal pyelonephritis. Electronically signed by: Renan Olivo MD (07/27/2019 7:44 AM) [id number]
[2019-07-27] MEDS: ONDANSETRON PF 4 MG/2 ML VIAL. IV PRN ×2 (08:16→18:10)
[2019-07-27] MEDS: MULTIVITAMIN with MINERAL TABLET. PO SCH (08:16)
[2019-07-27] MEDS: LACTOBACILLUS RHAMNOSUS GG 1 CAPSULE. PO SCH ×2 (08:17→21:24)
--- NOTE | 2019-07-27 08:47 | PDOC ---
PROGRESS NOTES Chief Complaint Chief Complaint SYmptomatic UTI with pyelonephritis, DIlated RT ureter- no radio opaque/radio luscent stone GNR bacteremia 2/2 bottles History of Present Illness History of Present Illness looks better CLaims still low grade temps but i dont see one charted still some nausea but does not want to back down on diet "she picks on which food to eat" WBC normal, ID on board, cont iV zosyn 2/2 bottles GNR US: 1. There is no hydronephrosis of either kidney. There is a focus of relative increased echogenicity of the mid right kidney and right kidney is larger than the left, could be seen with focal pyelonephritis. PLAAN: Await GNR ID and sensitivities COnt zosyn COnt reg diet and nausea meds Vitals Vitals Vital Signs Date Time Temp Pulse Resp B/P (MAP) Pulse Ox O2 Delivery O2 Flow Rate FiO2 07/27/19 08:17 20 Room Air 07/27/19 07:00 98.5 86 111/63 (79) 97 98.5 Physical Exam General: Alert, Oriented X3, Cooperative, No acute distress Lungs: Clear Abdomen: Soft, Other (rt sided flank pain) Extremities: No clubbing, No cyanosis, No edema, Normal pulses, No tenderness/swelling Skin: No rashes, No breakdown, No significant lesion Review of Systems Review of Systems nausea, minmal flank pain, no fevers, no cp, soa, diarrhea, constipation, emesis Assessment and Plan Assessmemt and Plan Problems Medical Problems: (1) Pyelonephritis Status: Acute Comment Review of Relevant I have reviewed the following items jessenia (where applicable) has been applied. Labs Laboratory Tests Test 07/25/19 19:34 07/25/19 19:40 07/25/19 19:43 07/25/19 20:43 Urine Collection Type Unknown Urine Color Yellow Urine Clarity Cloudy Urine pH 5.5 Urine Specific [place] 1.020 Urine Protein 100 mg/dL (NEG-TRACE) Urine Glucose (UA) 100 mg/dL (NEG) Urine Ketones (Stick) Trace mg/dL (NEG) Urine Blood Large (NEG) Urine Nitrite Positive (NEG) Urine Bilirubin Negative (NEG) Urine Urobilinogen Dipstick 1.0 mg/dL (0.2 mg/dL) Urine Leukocyte Esterase Large (NEG) Urine RBC 6-10 /HPF (0-2) Urine WBC Tntc /HPF (0-4) Urine Squamous Epithelial Cells Many /LPF Urine Bacteria Moderate /HPF (0-FEW) Urine Mucus Marked /LPF White Blood Count 20.5 x10^3/uL (4.0-11.0) Red Blood Count 4.39 x10^6/uL (3.50-5.40) Hemoglobin 14.1 g/dL (12.0-15.5) Hematocrit 41.3 % (36.0-47.0) Mean Corpuscular Volume 94 fL (79-100) Mean Corpuscular Hemoglobin 32 pg (25-35) Mean Corpuscular Hemoglobin Concent 34 g/dL (31-37) Red Cell Distribution Width 14.4 % (11.5-14.5) Platelet Count 498 x10^3/uL (140-400) Neutrophils (%) (Auto) 90 % (31-73) Lymphocytes (%) (Auto) 5 % (24-48) Monocytes (%) (Auto) 5 % (0-9) Eosinophils (%) (Auto) 0 % (0-3) Basophils (%) (Auto) 0 % (0-3) Neutrophils # (Auto) 18.4 x10^3/uL (1.8-7.7) Lymphocytes # (Auto) 1.0 x10^3/uL (1.0-4.8) Monocytes # (Auto) 1.0 x10^3/uL (0.0-1.1) Eosinophils # (Auto) 0.0 x10^3/uL (0.0-0.7) Basophils # (Auto) 0.1 x10^3/uL (0.0-0.2) Segmented Neutrophils % 86 % (35-66) Band Neutrophils % 4 % (0-9) Lymphocytes % 8 % (24-48) Monocytes % 2 % (0-10) Platelet Estimate Increased (ADEQUATE) Sodium Level 137 mmol/L (136-145) Potassium Level 3.7 mmol/L (3.5-5.1) Chloride Level 101 mmol/L (98-107) Carbon Dioxide Level 25 mmol/L (21-32) Anion Gap 11 (6-14) Blood Urea Nitrogen 7 mg/dL (7-20) Creatinine 1.3 mg/dL (0.6-1.0) Estimated GFR (Cockcroft-Gault) 56.4 BUN/Creatinine Ratio 5 (6-20) Glucose Level 148 mg/dL (70-99) Calcium Level 9.6 mg/dL (8.5-10.1) Total Bilirubin 0.3 mg/dL (0.2-1.0) Aspartate Amino Transf (AST/SGOT) 10 U/L (15-37) Alanine Aminotransferase (ALT/SGPT) 12 U/L (14-59) Alkaline Phosphatase 90 U/L (46-116) Total Protein 7.7 g/dL (6.4-8.2) Albumin 3.3 g/dL (3.4-5.0) Albumin/Globulin Ratio 0.8 (1.0-1.7) Lipase 61 U/L (73-393) Bedside Urine HCG, Qualitative Hcg negative (Negative) Influenza Type A Antigen Negative (NEGATIVE) Influenza Type B Antigen Negative (NEGATIVE) Test 07/26/19 06:20 White Blood Count 21.0 x10^3/uL (4.0-11.0) Red Blood Count 4.15 x10^6/uL (3.50-5.40) Hemoglobin 13.4 g/dL (12.0-15.5) Hematocrit 39.3 % (36.0-47.0) Mean Corpuscular Volume 95 fL (79-100) Mean Corpuscular Hemoglobin 32 pg (25-35) Mean Corpuscular Hemoglobin Concent 34 g/dL (31-37) Red Cell Distribution Width 14.5 % (11.5-14.5) Platelet Count 401 x10^3/uL (140-400) Neutrophils (%) (Auto) 90 % (31-73) Lymphocytes (%) (Auto) 4 % (24-48) Monocytes (%) (Auto) 6 % (0-9) Eosinophils (%) (Auto) 0 % (0-3) Basophils (%) (Auto) 0 % (0-3) Neutrophils # (Auto) 19.0 x10^3/uL (1.8-7.7) Lymphocytes # (Auto) 0.8 x10^3/uL (1.0-4.8) Monocytes # (Auto) 1.2 x10^3/uL (0.0-1.1) Eosinophils # (Auto) 0.0 x10^3/uL (0.0-0.7) Basophils # (Auto) 0.0 x10^3/uL (0.0-0.2) Sodium Level 136 mmol/L (136-145) Potassium Level 3.7 mmol/L (3.5-5.1) Chloride Level 103 mmol/L (98-107) Carbon Dioxide Level 21 mmol/L (21-32) Anion Gap 12 (6-14) Blood Urea Nitrogen 7 mg/dL (7-20) Creatinine 1.1 mg/dL (0.6-1.0) Estimated GFR (Cockcroft-Gault) 68.4 Glucose Level 126 mg/dL (70-99) Lactic Acid Level 0.5 mmol/L (0.4-2.0) Calcium Level 8.8 mg/dL (8.5-10.1) Microbiology 07/25/19 Blood Culture - Final, Complete Medications Current Medications Sodium Chloride 1,000 ml @ 1,000 mls/hr Q1H IV Last administered on 07/25/19 20:35; Start 07/25/19 at 19:47; Stop 07/25/19 at 20:46; Status DC Ondansetron HCl (Zofran) 4 mg 1X ONCE IV Last administered on 07/25/19 20:35; Start 07/25/19 at 20:00; Stop 07/25/19 at 20:01; Status DC Morphine Sulfate (Morphine Sulfate) 4 mg 1X ONCE IV Last administered on 07/25/19 20:35; Start 07/25/19 at 20:00; Stop 07/25/19 at 20:01; Status DC Acetaminophen (Tylenol) 1,000 mg 1X ONCE PO Last administered on 07/25/19 20:35; Start 07/25/19 at 20:00; Stop 07/25/19 at 20:01; Status DC Ceftriaxone Sodium (Rocephin) 1 gm 1X ONCE IVP Last administered on 07/25/19at 22:27; Start 07/25/19 at 20:45; Stop 07/25/19 at 20:46; Status DC Morphine Sulfate (Morphine Sulfate) 4 mg 1X ONCE IV Last administered on 07/25/19at 22:27; Start 07/25/19 at 21:30; Stop 07/25/19 at 21:31; Status DC Ondansetron HCl (Zofran) 4 mg PRN Q8HRS PRN IV NAUSEA/VOMITING 1ST CHOICE Last administered on 07/26/19at 03:06; Start 07/25/19 at 21:30; Stop 07/26/19 at 09:25; Status DC Morphine Sulfate (Morphine Sulfate) 4 mg PRN Q2HR PRN IV SEVERE PAIN 7-10 Last administered on 07/26/19at 19:36; Start 07/25/19 at 21:30; Stop 07/26/19 at 21:29; Status DC Sodium Chloride 1,000 ml @ 125 mls/hr Q8H IV Last administered on 07/26/19at 16:56; Start 07/25/19 at 22:00; Stop 07/26/19 at 21:59; Status DC Acetaminophen (Tylenol) 650 mg PRN Q4HRS PRN PO FEVER Last administered on 07/26/19at 19:36; Start 07/25/19 at 21:30; Stop 07/26/19 at 21:29; Status DC Ondansetron HCl (Zofran) 4 mg PRN Q6HRS PRN IV NAUSEA/VOMITING 1ST CHOICE Last administered on 07/27/19at 08:17; Start 07/26/19 at 09:30 Oxycodone/ Acetaminophen (Percocet 5/325) 1 tab PRN Q4HRS PRN PO MILD PAIN 1-3; Start 07/26/19 at 09:30 Oxycodone/ Acetaminophen (Percocet 10/325) 1 tab PRN Q4HRS PRN PO MODERATE PAIN, SEVERE PAIN Last administered on 07/27/19at 08:17; Start 07/26/19 at 09:30 Piperacillin Sod/ Tazobactam Sod (Zosyn Per Pharmacy) 1 each PRN DAILY PRN MC SEE COMMENTS; Start 07/26/19 at 09:30 Multivitamins (Thera M Plus) 1 tab DAILY PO Last administered on 07/27/19at 08 :17; Start 07/26/19 at 10:00 Piperacillin Sod/ Tazobactam Sod 3.375 gm/Sodium Chloride 50 ml @ 100 mls/hr Q6HRS IV Last administered on 07/27/19at 05:31; Start 07/26/19 at 10:00 Prochlorperazine Edisylate (Compazine) 10 mg PRN Q6HRS PRN IV NAUSEA/VOMITING 2ND CHOICE Last administered on 07/26/19at 12:11; Start 07/26/19 at 12:00 Lactobacillus Rhamnosus (Culturelle) 1 cap BID PO Last administered on 07/27/19at 08:17; Start 07/26/19 at 21:00 Active Scripts Active Flagyl (Metronidazole) 500 Mg Tablet 1 Tab PO BID Flagyl (Metronidazole) 500 Mg Tablet 1 Tab PO BID Macrobid 100 Mg Capsule (Nitrofurantoin Monohyd/M-Cryst) 100 Mg Capsule 1 Cap PO BID Flagyl (Metronidazole) 500 Mg Tablet 1 Tab PO BID Zithromax (Azithromycin) 250 Mg Tablet 250 Mg PO DAILY 2 tablets today then 1 tablet daily until gone Flagyl (Metronidazole) 500 Mg Tablet 1 Tab PO BID Bactrim Ds Tablet (Sulfamethoxazole/Trimethoprim) 1 Each Tablet 1 Tab PO BID Flagyl (Metronidazole) 500 Mg Tablet 1 Tab PO BID Reported Multivitamins (Multivitamin) 1 Each Tablet 1 Each PO DAILY Levaquin (Levofloxacin) 500 Mg Tablet 1 Tab PO DAILY Lortab 5-325 mg Tablet (Hydrocodone/Acetaminophen) 1 Each Tablet 1 Tab PO PRN Q6HRS PRN Diflucan (Fluconazole) 100 Mg Tablet 100 Mg PO DAILY Vitals/I & O Vital Sign - Last 24 Hours 07/26/19 07/26/19 07/26/19 07/26/19 08:57 11:09 12:11 12:11 Temp 98.5 98.5 Pulse 84 Resp 20 16 20 20 B/P (MAP) 100/62 (75) Pulse Ox 98 O2 Delivery Room Air Room Air Room Air Room Air 07/26/19 07/26/19 07/26/19 07/26/19 15:20 16:18 16:55 17:06 Temp 98.7 98.7 Pulse 83 Resp 18 20 20 20 B/P (MAP) 100/62 (75) Pulse Ox 98 O2 Delivery Room Air Room Air Room Air Room Air 07/26/19 07/26/19 07/26/19 07/26/19 17:44 17:57 19:00 19:36 Temp 99.3 99.3 Pulse 97 Resp 20 20 18 B/P (MAP) 98/55 (69) Pulse Ox 96 O2 Delivery Room Air Room Air Room Air Room Air 07/26/19 07/26/19 07/26/19 07/26/19 19:39 19:40 21:03 21:03 Pulse 97 B/P (MAP) 104/57 (73) O2 Delivery Room Air Room Air Room Air Room Air 07/26/19 07/26/19 07/27/19 07/27/19 22:06 22:56 03:19 03:22 Temp 98.2 99.4 98.2 99.4 Pulse 79 93 Resp 18 16 B/P (MAP) 106/58 (74) 123/71 (88) Pulse Ox 97 95 O2 Delivery Room Air Room Air Room Air 07/27/19 07/27/19 07/27/19 04:23 07:00 08:17 Temp 98.5 98.5 Pulse 86 Resp 18 20 B/P (MAP) 111/63 (79) Pulse Ox 97 O2 Delivery Room Air Room Air Room Air Intake and Output 07/26/19 07/26/19 07/27/19 14:59 22:59 06:59 Intake Total 120 ml 240 ml Output Total 950 ml 700 ml Balance -830 ml -460 ml STERLING NORTON MD Jul 27, 2019 08:47
[2019-07-27 09:57] LABS: BASO % 0 % (0-3); EOS # 0.1 x10^3/uL (0.0-0.7); EOS % 1 % (0-3); HEMATOCRIT 39.2 % (36.0-47.0); HEMOGLOBIN 13.2 g/dL (12.0-15.5); LYMPH # 1.4 x10^3/uL (1.0-4.8); LYMPH % 13 % (24-48); MEAN CORPUSCULAR HEMOGLOBIN 32 pg (25-35); MEAN CORPUSCULAR HGB CONC 34 g/dL (31-37); MEAN CORPUSCULAR VOLUME 95 fL (79-100); MONO # 0.7 x10^3/uL (0.0-1.1); MONO % 6 % (0-9); NEUT % 80 % (31-73); PLATELET COUNT 420 x10^3/uL (140-400); RED BLOOD COUNT 4.13 x10^6/uL (3.50-5.40); RED CELL DISTRIBUTION WIDTH 14.8 % (11.5-14.5); WHITE BLOOD COUNT 11.3 x10^3/uL (4.0-11.0)
--- NOTE | 2019-07-27 09:59 | PDOC ---
Infectious Disease Note Subjective: Subjective pt feels better less abdo pain,some nausea, no vomiting fever pattern improving ROS: ROS Negative otherwise. Vital Signs: Vital Signs Vital Signs Date Time Temp Pulse Resp B/P (MAP) Pulse Ox O2 Delivery O2 Flow Rate FiO2 07/27/19 09:32 20 Room Air 07/27/19 07:00 98.5 86 111/63 (79) 97 98.5 Physical Exam: PHYSICAL EXAM GENERAL: Alert and oriented x 3 female, lying in bed comfortably, in no acute distress, cooperative, pleasant. HEENT: Normocephalic, atraumatic. Anicteric. No thrush. NECK: Supple. No JVD. LUNGS: Clear bilaterally. No wheezing. HEART: S1, S2. No gallops, murmurs or rubs. ABDOMEN: Soft, nontender, nondistended. No rebound, no guarding. EXTREMITIES: No edema, no cyanosis, no clubbing. BACK: Reveals normal curvature. No CVA tenderness. DERMATOLOGIC: Warm, dry. No generalized rash. Multiple tattoos. NEUROLOGIC: Alert and oriented x 3. Grossly nonfocal. PSYCHIATRIC: Cooperative. Appropriate mood and affect. Medications: Inpatient Meds: Current Medications Medications (Trade) Dose Ordered Sig/Marc Start Time Stop Time Status Last Admin Dose Admin Acetaminophen (Tylenol) 650 mg PRN Q4HRS PRN 07/25/19 21:30 07/26/19 21:29 DC 07/26/19 19:36 650 MG Ceftriaxone Sodium (Rocephin) 1 gm 1X ONCE 07/25/19 20:45 07/25/19 20:46 DC 07/25/19 22:27 1 GM Lactobacillus Rhamnosus (Culturelle) 1 cap BID 07/26/19 21:00 07/27/19 08:17 1 CAP Morphine Sulfate (Morphine Sulfate) 4 mg PRN Q2HR PRN 07/25/19 21:30 07/26/19 21:29 DC 07/26/19 19:36 4 MG Multivitamins (Thera M Plus) 1 tab DAILY 07/26/19 10:00 07/27/19 08:17 1 TAB Ondansetron HCl (Zofran) 4 mg PRN Q6HRS PRN 07/26/19 09:30 07/27/19 08:17 4 MG Oxycodone/ Acetaminophen (Percocet 10/325) 1 tab PRN Q4HRS PRN 07/26/19 09:30 07/27/19 08:17 1 TAB Oxycodone/ Acetaminophen (Percocet 5/325) 1 tab PRN Q4HRS PRN 07/26/19 09:30 Piperacillin Sod/ Tazobactam Sod (Zosyn Per Pharmacy) 1 each PRN DAILY PRN 07/26/19 09:30 Piperacillin Sod/ Tazobactam Sod 3.375 gm/Sodium Chloride 50 ml @ 100 mls/hr Q6HRS 07/26/19 10:00 07/27/19 05:31 100 MLS/HR Prochlorperazine Edisylate (Compazine) 10 mg PRN Q6HRS PRN 07/26/19 12:00 07/26/19 12:11 10 MG Sodium Chloride 1,000 ml @ 125 mls/hr Q8H 07/25/19 22:00 07/26/19 21:59 DC 07/26/19 16:56 125 MLS/HR Objective: Assessment: 1. Fever. 2. Leukocytosis. 3. Gram-negative bacteremia ID and NOLBERTO pending, source genitourinary. 4. Urinary tract infection.UC pending 5. Likely nephrolithiasis. 6. Possible pyelonephritis.Pt says may have passed a possible stone 7. Acute kidney injury, improving. 8. Nausea and vomiting, improving. Plan: Plan of Care 1. Continue Zosyn. 2. F/U Urine cultures. 3. Follow up ID and NOLBERTO of gram-negative jaelyn in blood. 4. Continue supportive care. EMIL AVILA MD Jul 27, 2019 09:59
[2019-07-27 10:20] LABS: ALBUMIN 2.4 g/dL (3.4-5.0); ALBUMIN/GLOBULIN RATIO 0.7 (1.0-1.7); CALCIUM 8.7 mg/dL (8.5-10.1); CREATININE 0.9 mg/dL (0.6-1.0); GFR 86.2; POTASSIUM 3.3 mmol/L (3.5-5.1); TOTAL BILIRUBIN 0.3 mg/dL (0.2-1.0)
[2019-07-27 10:45] VITALS: BP 109/50
[2019-07-27] MEDS: PROCHLORPERAZINE 10 MG/2 ML VIAL. IV PRN (12:20)
[2019-07-27 15:00] VITALS: BP 110/58
[2019-07-27 18:45] VITALS: BP 103/59
[2019-07-27 23:00] VITALS: BP 112/69
[2019-07-28] MEDS: PIPERACILLIN/TAZOBACTAM 3.375 GM in IV NORMAL SALINE 50ML 50 ML IV SCH ×4 (00:06→17:43)
[2019-07-28] MEDS: ONDANSETRON PF 4 MG/2 ML VIAL. IV PRN ×3 (00:07→20:21)
[2019-07-28 03:11] VITALS: BP 138/78
[2019-07-28] MEDS: oxyCODONE/APAP 10/325 1 TAB TABLET PO PRN (06:14)
[2019-07-28 07:00] VITALS: BP 98/59
[2019-07-28] MEDS: MULTIVITAMIN with MINERAL TABLET. PO SCH (09:46)
[2019-07-28] MEDS: LACTOBACILLUS RHAMNOSUS GG 1 CAPSULE. PO SCH ×2 (09:47→20:17)
--- NOTE | 2019-07-28 10:16 | PDOC ---
Infectious Disease Note Subjective Subjective pt feels better less abdo pain, nausea, no vomiting fever pattern improving Urinating ok No rash ROS ROS o/w neg Vital Sign Vital Signs Vital Signs Date Time Temp Pulse Resp B/P (MAP) Pulse Ox O2 Delivery O2 Flow Rate FiO2 07/28/19 07:47 Room Air 07/28/19 07:46 16 07/28/19 07:00 98.5 79 98/59 (72) 97 98.5 Physical Exam PHYSICAL EXAM GENERAL: Alert and oriented x 3 female, lying in bed comfortably, in no acute distress, cooperative, pleasant.laughing on the phone HEENT: Normocephalic, atraumatic. Anicteric. No thrush. NECK: Supple. No JVD. LUNGS: Clear bilaterally. No wheezing. HEART: S1, S2. No gallops, murmurs or rubs. ABDOMEN: Soft, nontender, nondistended. No rebound, no guarding. EXTREMITIES: No edema, no cyanosis, no clubbing. BACK: Reveals normal curvature. No CVA tenderness. DERMATOLOGIC: Warm, dry. No generalized rash. Multiple tattoos. NEUROLOGIC: Alert and oriented x 3. Grossly nonfocal. PSYCHIATRIC: Cooperative. Appropriate mood and affect. Labs Micro Microbiology 07/27/19 Blood Culture - Preliminary, Resulted NO GROWTH AFTER 1 DAY Objective Assessment 1. Fever - better. 2. Leukocytosis - better. 3. Gram-negative bacteremia ID and NOLBERTO pending, source genitourinary. 4. Urinary tract infection.UC pending 5. Likely nephrolithiasis. 6. Possible pyelonephritis.Pt says may have passed a possible stone 7. Acute kidney injury, improving. 8. Nausea and vomiting, improving. Plan Plan of Care 1. Continue Zosyn. 2. F/U Urine cultures. 3. Follow up ID and NOLBERTO of gram-negative jaelyn in blood. 4. Continue supportive care. PRITESH MEANS MD Jul 28, 2019 10:16
[2019-07-28] MEDS: HYDROcodone/APAP 10/325 1 TAB TABLET PO PRN ×3 (10:20→20:18)
[2019-07-28 11:00] VITALS: BP 129/82
--- NOTE | 2019-07-28 13:04 | NUR ---
SS following for discharge planning. SS reviewed pt chart. Pt is from home and is currently on room air. No discharge needs noted at this time. SS will continue to follow for discharge planning.
--- NOTE | 2019-07-28 13:23 | PDOC ---
[employer] PROGRESS NOTE Chief Complaint Chief Complaint Symptomatic UTI with pyelonephritis, Dilated RT ureter- no radio opaque/radio luscent stone GNR bacteremia 2/2 bottles History of Present Illness History of Present Illness Pt seen and examined at bedside Pt looks better Still some nausea but appears to be consuming her food Vitals/I&O Vitals/I&O: Vital Signs Date Time Temp Pulse Resp B/P (MAP) Pulse Ox O2 Delivery O2 Flow Rate FiO2 07/28/19 11:38 16 Room Air 07/28/19 11:00 98.3 68 129/82 (98) 98 98.3 I & O 07/27/19 07/27/19 07/28/19 15:00 23:00 07:00 Intake Total 600 ml 540 ml 480 ml Output Total 1200 ml 1200 ml Balance 600 ml -660 ml -720 ml Physical Exam Physical Exam: GENERAL: Alert and oriented x 3 female, lying in bed comfortably, in no acute distress, cooperative, pleasant.laughing on the phone HEENT: Normocephalic, atraumatic. Anicteric. No thrush. NECK: Supple. No JVD. LUNGS: Clear bilaterally. No wheezing. HEART: S1, S2. No gallops, murmurs or rubs. ABDOMEN: Soft, nontender, nondistended. No rebound, no guarding. EXTREMITIES: No edema, no cyanosis, no clubbing. BACK: Reveals normal curvature. No CVA tenderness. DERMATOLOGIC: Warm, dry. No generalized rash. Multiple tattoos. NEUROLOGIC: Alert and oriented x 3. Grossly nonfocal. PSYCHIATRIC: Cooperative. Appropriate mood and affect. General: Alert, Oriented X3, Cooperative, No acute distress Lungs: Clear Abdomen: Soft, Other (rt sided flank pain) Extremities: No clubbing, No cyanosis, No edema, Normal pulses, No tenderness/swelling Skin: No rashes, No breakdown, No significant lesion Review of Systems Review of Systems: Pt complains of nausea Pt complains of flank pain Assessment and Plan Assessmemt and Plan Problems Medical Problems: (1) MARIN (acute kidney injury) Status: Acute (2) Fever Status: Acute (3) Gram-negative bacteremia Status: Acute (4) Pyelonephritis Status: Acute (5) UTI (lower urinary tract infection) Status: Acute Assessment Pyelonephritis w UTI Acute kidney injury Nausea and vomiting Plan Continue IV Zosyn DVT prophylaxis Full Code Reconcile home meds Discharge when ID gives ok Comment Review of Relevant I have reviewed the following items jessenia (where applicable) has been applied. Medications: Current Medications Medications (Trade) Dose Ordered Sig/Marc Route PRN Reason Start Time Stop Time Status Last Admin Dose Admin Acetaminophen/ Hydrocodone Bitart (Lortab 10325) 1 tab PRN Q4HRS PRN PO MODERATE TO SEVERE PAIN 07/28/19 09:45 07/28/19 10:20 BARB READ III DO Jul 28, 2019 13:23
[2019-07-28 15:00] VITALS: BP 144/78
[2019-07-28 19:00] VITALS: BP 143/71
[2019-07-28] MEDS: PROCHLORPERAZINE 10 MG/2 ML VIAL. IV PRN (22:32)
[2019-07-28 22:43] VITALS: BP 126/86
[2019-07-29 02:52] VITALS: BP 105/61
[2019-07-29] MEDS: HYDROcodone/APAP 10/325 1 TAB TABLET PO PRN (04:10)
[2019-07-29] MEDS: ONDANSETRON PF 4 MG/2 ML VIAL. IV PRN (04:11)
[2019-07-29] MEDS: PIPERACILLIN/TAZOBACTAM 3.375 GM in IV NORMAL SALINE 50ML 50 ML IV SCH ×3 (05:45)
[2019-07-29 05:54] LABS: BASO % 1 % (0-3); EOS # 0.2 x10^3/uL (0.0-0.7); EOS % 3 % (0-3); HEMATOCRIT 36.2 % (36.0-47.0); HEMOGLOBIN 12.4 g/dL (12.0-15.5); LYMPH # 2.2 x10^3/uL (1.0-4.8); LYMPH % 32 % (24-48); MEAN CORPUSCULAR HEMOGLOBIN 32 pg (25-35); MEAN CORPUSCULAR HGB CONC 34 g/dL (31-37); MEAN CORPUSCULAR VOLUME 94 fL (79-100); MONO # 0.8 x10^3/uL (0.0-1.1); MONO % 12 % (0-9); NEUT # 3.7 x10^3/uL (1.8-7.7); NEUT % 53 % (31-73); PLATELET COUNT 456 x10^3/uL (140-400); RED BLOOD COUNT 3.86 x10^6/uL (3.50-5.40); RED CELL DISTRIBUTION WIDTH 15.5 % (11.5-14.5); WHITE BLOOD COUNT 7.1 x10^3/uL (4.0-11.0)
[2019-07-29 07:15] VITALS: BP 119/70
[2019-07-29 07:21] LABS: ALBUMIN 2.4 g/dL (3.4-5.0); ALBUMIN/GLOBULIN RATIO 0.8 (1.0-1.7); CALCIUM 8.7 mg/dL (8.5-10.1); GFR 76.3; POTASSIUM 3.8 mmol/L (3.5-5.1); TOTAL BILIRUBIN 0.2 mg/dL (0.2-1.0); TOTAL PROTEIN 5.5 g/dL (6.4-8.2)
[2019-07-29] MEDS: LACTOBACILLUS RHAMNOSUS GG 1 CAPSULE. PO SCH ×2 (09:09→21:41)
[2019-07-29] MEDS: HYDROcodone/APAP 7.5/325MG 1 TAB TABLET PO PRN ×2 (09:09→15:25)
[2019-07-29] MEDS: MULTIVITAMIN with MINERAL TABLET. PO SCH (09:09)
--- NOTE | 2019-07-29 09:32 | PDOC ---
[employer] PROGRESS NOTE Chief Complaint Chief Complaint Symptomatic UTI with pyelonephritis, Dilated RT ureter- no radio opaque/radio luscent stone GNR bacteremia 2/2 bottles History of Present Illness History of Present Illness 07/29/19 Pt seen and examined at bedside Pt appears better, but still complaining of pain. D/w RN 07/28/19 Pt seen and examined at bedside Pt looks better Still some nausea but appears to be consuming her food Vitals/I&O Vitals/I&O: Vital Signs Date Time Temp Pulse Resp B/P (MAP) Pulse Ox O2 Delivery O2 Flow Rate FiO2 07/29/19 09:09 16 Room Air 07/29/19 07:15 98.1 71 119/70 (86) 96 98.1 I & O 07/28/19 07/28/19 07/29/19 14:59 22:59 06:59 Intake Total 300 ml 320 ml Balance 300 ml 320 ml Physical Exam Physical Exam: GENERAL: Alert and oriented x 3 female, lying in bed comfortably, in no acute distress, cooperative, pleasant.laughing on the phone HEENT: Normocephalic, atraumatic. Anicteric. No thrush. NECK: Supple. No JVD. LUNGS: Clear bilaterally. No wheezing. HEART: S1, S2. No gallops, murmurs or rubs. ABDOMEN: Soft, nontender, nondistended. No rebound, no guarding. EXTREMITIES: No edema, no cyanosis, no clubbing. BACK: Reveals normal curvature. No CVA tenderness. DERMATOLOGIC: Warm, dry. No generalized rash. Multiple tattoos. NEUROLOGIC: Alert and oriented x 3. Grossly nonfocal. PSYCHIATRIC: Cooperative. Appropriate mood and affect. General: Alert, Oriented X3, Cooperative, No acute distress Lungs: Clear Abdomen: Soft, Other (rt sided flank pain) Extremities: No clubbing, No cyanosis, No edema, Normal pulses, No tenderness/swelling Skin: No rashes, No breakdown, No significant lesion Labs Labs: Laboratory Tests Test 07/29/19 05:30 White Blood Count 7.1 x10^3/uL (4.0-11.0) Red Blood Count 3.86 x10^6/uL (3.50-5.40) Hemoglobin 12.4 g/dL (12.0-15.5) Hematocrit 36.2 % (36.0-47.0) Mean Corpuscular Volume 94 fL (79-100) Mean Corpuscular Hemoglobin 32 pg (25-35) Mean Corpuscular Hemoglobin Concent 34 g/dL (31-37) Red Cell Distribution Width 15.5 % (11.5-14.5) Platelet Count 456 x10^3/uL (140-400) Neutrophils (%) (Auto) 53 % (31-73) Lymphocytes (%) (Auto) 32 % (24-48) Monocytes (%) (Auto) 12 % (0-9) Eosinophils (%) (Auto) 3 % (0-3) Basophils (%) (Auto) 1 % (0-3) Neutrophils # (Auto) 3.7 x10^3/uL (1.8-7.7) Lymphocytes # (Auto) 2.2 x10^3/uL (1.0-4.8) Monocytes # (Auto) 0.8 x10^3/uL (0.0-1.1) Eosinophils # (Auto) 0.2 x10^3/uL (0.0-0.7) Basophils # (Auto) 0.0 x10^3/uL (0.0-0.2) Sodium Level 143 mmol/L (136-145) Potassium Level 3.8 mmol/L (3.5-5.1) Chloride Level 106 mmol/L (98-107) Carbon Dioxide Level 31 mmol/L (21-32) Anion Gap 6 (6-14) Blood Urea Nitrogen 5 mg/dL (7-20) Creatinine 1.0 mg/dL (0.6-1.0) Estimated GFR (Cockcroft-Gault) 76.3 BUN/Creatinine Ratio 5 (6-20) Glucose Level 94 mg/dL (70-99) Calcium Level 8.7 mg/dL (8.5-10.1) Total Bilirubin 0.2 mg/dL (0.2-1.0) Aspartate Amino Transf (AST/SGOT) 26 U/L (15-37) Alanine Aminotransferase (ALT/SGPT) 23 U/L (14-59) Alkaline Phosphatase 89 U/L (46-116) Total Protein 5.5 g/dL (6.4-8.2) Albumin 2.4 g/dL (3.4-5.0) Albumin/Globulin Ratio 0.8 (1.0-1.7) Review of Systems Review of Systems: Pt co flank pain Pt co of chills Assessment and Plan Assessmemt and Plan Problems Medical Problems: (1) MARIN (acute kidney injury) Status: Acute (2) Fever Status: Acute (3) Gram-negative bacteremia Status: Acute (4) Pyelonephritis Status: Acute (5) UTI (lower urinary tract infection) Status: Acute Assessment Pyelonephritis w UTI Acute kidney injury Nausea and vomiting Plan Discharge when ID gives ok Hope to encourage PO Abx Continue PO fluids DVT prophylaxis Full Code Reconcile home meds Left prescriptions for augmentin, Oxly, and Return to Work (for 07/31/19) Comment Review of Relevant I have reviewed the following items jessenia (where applicable) has been applied. Medications: Current Medications Medications (Trade) Dose Ordered Sig/Marc Route PRN Reason Start Time Stop Time Status Last Admin Dose Admin Acetaminophen/ Hydrocodone Bitart (Lortab 10/325) 1 tab PRN Q4HRS PRN PO MODERATE TO SEVERE PAIN 07/28/19 09:45 07/29/19 04:11 Acetaminophen/ Hydrocodone Bitart (Lortab 7.5/325) 1 tab PRN Q4HRS PRN PO MILD TO MODERATE PAIN 07/28/19 09:45 07/29/19 09:09 BARB READ III DO Jul 29, 2019 09:32
[2019-07-29 11:03] VITALS: BP 131/82
--- NOTE | 2019-07-29 12:00 | PDOC ---
Infectious Disease Note Subjective Subjective pt feels better less abdo pain, nausea, no vomiting fever pattern improving Urinating ok No rash Eating ROS ROS o/w neg Vital Sign Vital Signs Vital Signs Date Time Temp Pulse Resp B/P (MAP) Pulse Ox O2 Delivery O2 Flow Rate FiO2 07/29/19 11:03 98.1 68 18 131/82 (98) 97 Room Air 98.1 Physical Exam PHYSICAL EXAM GENERAL: Alert and oriented x 3 female, lying in bed comfortably, in no acute distress, cooperative, pleasant. laughing - in bed with 2 year old HEENT: Normocephalic, atraumatic. Anicteric. No thrush. NECK: Supple. No JVD. LUNGS: Clear bilaterally. No wheezing. HEART: S1, S2. No gallops, murmurs or rubs. ABDOMEN: Soft, nontender, nondistended. No rebound, no guarding. EXTREMITIES: No edema, no cyanosis, no clubbing. BACK: Reveals normal curvature. No CVA tenderness. DERMATOLOGIC: Warm, dry. No generalized rash. Multiple tattoos. NEUROLOGIC: Alert and oriented x 3. Grossly nonfocal. PSYCHIATRIC: Cooperative. Appropriate mood and affect. Labs Lab Laboratory Tests Test 07/29/19 05:30 White Blood Count 7.1 x10^3/uL (4.0-11.0) Red Blood Count 3.86 x10^6/uL (3.50-5.40) Hemoglobin 12.4 g/dL (12.0-15.5) Hematocrit 36.2 % (36.0-47.0) Mean Corpuscular Volume 94 fL (79-100) Mean Corpuscular Hemoglobin 32 pg (25-35) Mean Corpuscular Hemoglobin Concent 34 g/dL (31-37) Red Cell Distribution Width 15.5 % (11.5-14.5) Platelet Count 456 x10^3/uL (140-400) Neutrophils (%) (Auto) 53 % (31-73) Lymphocytes (%) (Auto) 32 % (24-48) Monocytes (%) (Auto) 12 % (0-9) Eosinophils (%) (Auto) 3 % (0-3) Basophils (%) (Auto) 1 % (0-3) Neutrophils # (Auto) 3.7 x10^3/uL (1.8-7.7) Lymphocytes # (Auto) 2.2 x10^3/uL (1.0-4.8) Monocytes # (Auto) 0.8 x10^3/uL (0.0-1.1) Eosinophils # (Auto) 0.2 x10^3/uL (0.0-0.7) Basophils # (Auto) 0.0 x10^3/uL (0.0-0.2) Sodium Level 143 mmol/L (136-145) Potassium Level 3.8 mmol/L (3.5-5.1) Chloride Level 106 mmol/L (98-107) Carbon Dioxide Level 31 mmol/L (21-32) Anion Gap 6 (6-14) Blood Urea Nitrogen 5 mg/dL (7-20) Creatinine 1.0 mg/dL (0.6-1.0) Estimated GFR (Cockcroft-Gault) 76.3 BUN/Creatinine Ratio 5 (6-20) Glucose Level 94 mg/dL (70-99) Calcium Level 8.7 mg/dL (8.5-10.1) Total Bilirubin 0.2 mg/dL (0.2-1.0) Aspartate Amino Transf (AST/SGOT) 26 U/L (15-37) Alanine Aminotransferase (ALT/SGPT) 23 U/L (14-59) Alkaline Phosphatase 89 U/L (46-116) Total Protein 5.5 g/dL (6.4-8.2) Albumin 2.4 g/dL (3.4-5.0) Albumin/Globulin Ratio 0.8 (1.0-1.7) Micro Urine URINE CULTURE RES 1 Final Escherichia coli Greater than 100,000 colony forming units per mL Performed at: DA - [facility] [address], [place] [id number] Pipe Bowls Paint Trimmer: KYLE Charles MD, Phone: [phone] Greater than 100,000 colony forming units per mL Cefazolin <=4 ug/mL Cefazolin with an NOLBERTO <=16 predicts susceptibility to the oral agents cefaclor, cefdinir, cefpodoxime, cefprozil, cefuroxime, cephalexin, and loracarbef when used for therapy of uncomplicated urinary tract infections due to E. coli, Klebsiella pneumoniae, and Proteus mirabilis. ANTIMICROBIAL SUSCEPTIBILITY Final Comment S = Susceptible; I = Intermediate; R = Resistant P = Positive; N = Negative MICS are expressed in micrograms per mL Antibiotic RSLT#1 RSLT#2 RSLT#3 RSLT#4 Amoxicillin/Clavulanic Acid S<=2 Ampicillin S<=2 Cefepime S<=0.12 Ceftriaxone S<=0.25 Cefuroxime S =4 Ciprofloxacin S<=0.25 Ertapenem S<=0.12 Gentamicin S<=1 Imipenem S<=0.25 Levofloxacin S<=0.12 Meropenem S<=0.25 Nitrofurantoin S<=16 Piperacillin/Tazobactam S<=4 CONTINUED ON NEXT PAGE RUN DATE: 07/29/19 PAGE 2 RUN TIME: 1211 [facility] [address] [place] [address] Rivera Hidalgo M.D., Drafter Heating And Ventilating SPEC: [id number] PATIENT: MALOU BRUNER [id number] (Continued) Procedure Result ANTIMICROBIAL SUSCEPTIBILITY Final (continued) Tetracycline S<=1 Tobramycin S<=1 Microbiology 07/27/19 Blood Culture - Preliminary, Resulted NO GROWTH AFTER 1 DAY Objective Assessment 1. Fever - better. 2. Leukocytosis - better. 3. Gram-negative bacteremia ID and NOLBERTO pending, source genitourinary. 4. Urinary tract infection. Ecoli 5. Likely nephrolithiasis. 6. Possible pyelonephritis.Pt says may have passed a possible stone 7. Acute kidney injury, improving. 8. Nausea and vomiting, improving. Plan Plan of Care 1. Discontinue Zosyn - begin Rocephin 2. Follow up ID and NOLBERTO of gram-negative jaelyn in blood. when sensitivities available will adjust abx hopefully to po 4. Continue supportive care. D/w nursing PRITESH MEANS MD Jul 29, 2019 12:00
[2019-07-29 15:02] VITALS: BP 146/80
[2019-07-29] MEDS: cefTRIAXone IV Push 2 GM VIAL. IVP SCH (15:25)
[2019-07-29] MEDS: PROCHLORPERAZINE 10 MG/2 ML VIAL. IV PRN (15:46)
[2019-07-29 19:00] VITALS: BP 134/78
[2019-07-29 22:50] VITALS: BP 116/64
[2019-07-30 02:34] VITALS: BP 114/66
[2019-07-30] MEDS: HYDROcodone/APAP 7.5/325MG 1 TAB TABLET PO PRN ×4 (05:36→22:22)
[2019-07-30] MEDS: ONDANSETRON ODT 4 MG TAB.RAPDIS. PO PRN ×2 (05:36→19:32)
[2019-07-30 07:00] VITALS: BP 141/93
[2019-07-30] MEDS: MULTIVITAMIN with MINERAL TABLET. PO SCH (08:57)
[2019-07-30] MEDS: LACTOBACILLUS RHAMNOSUS GG 1 CAPSULE. PO SCH ×2 (08:57→21:07)
--- NOTE | 2019-07-30 09:16 | PDOC3 ---
Discharge Summary Visit Information Date of Admission: Jul 25, 2019 Date of Discharge: Jul 30, 2019 Admitting Diagnosis Comment: SYmptomatic UTI with pyelonephritis, DIlated RT ureter- no radio opaque/radio luscent stone GNR bacteremia 2/2 bottles Final Diagnosis Problems Medical Problems: (1) MARIN (acute kidney injury) Status: Acute (2) Fever Status: Acute (3) Gram-negative bacteremia Status: Acute (4) Pyelonephritis Status: Acute (5) UTI (lower urinary tract infection) Status: Acute Brief Hospital Course Allergies Allergies Coded Allergies Type Severity Reaction Last Updated Verified No Known Medication Allergies Allergy Unknown 07/28/19 Yes fentanyl Adverse Reaction Intermediate itching 08/29/16 Yes Vital Signs Vital Signs Date Time Temp Pulse Resp B/P (MAP) Pulse Ox O2 Delivery O2 Flow Rate FiO2 07/30/19 07:00 97.5 72 16 141/93 (109) 95 Room Air 97.5 Lab Results Laboratory Tests Test 07/29/19 05:30 White Blood Count 7.1 x10^3/uL (4.0-11.0) Red Blood Count 3.86 x10^6/uL (3.50-5.40) Hemoglobin 12.4 g/dL (12.0-15.5) Hematocrit 36.2 % (36.0-47.0) Mean Corpuscular Volume 94 fL (79-100) Mean Corpuscular Hemoglobin 32 pg (25-35) Mean Corpuscular Hemoglobin Concent 34 g/dL (31-37) Red Cell Distribution Width 15.5 % (11.5-14.5) Platelet Count 456 x10^3/uL (140-400) Neutrophils (%) (Auto) 53 % (31-73) Lymphocytes (%) (Auto) 32 % (24-48) Monocytes (%) (Auto) 12 % (0-9) Eosinophils (%) (Auto) 3 % (0-3) Basophils (%) (Auto) 1 % (0-3) Neutrophils # (Auto) 3.7 x10^3/uL (1.8-7.7) Lymphocytes # (Auto) 2.2 x10^3/uL (1.0-4.8) Monocytes # (Auto) 0.8 x10^3/uL (0.0-1.1) Eosinophils # (Auto) 0.2 x10^3/uL (0.0-0.7) Basophils # (Auto) 0.0 x10^3/uL (0.0-0.2) Sodium Level 143 mmol/L (136-145) Potassium Level 3.8 mmol/L (3.5-5.1) Chloride Level 106 mmol/L (98-107) Carbon Dioxide Level 31 mmol/L (21-32) Anion Gap 6 (6-14) Blood Urea Nitrogen 5 mg/dL (7-20) Creatinine 1.0 mg/dL (0.6-1.0) Estimated GFR (Cockcroft-Gault) 76.3 BUN/Creatinine Ratio 5 (6-20) Glucose Level 94 mg/dL (70-99) Calcium Level 8.7 mg/dL (8.5-10.1) Total Bilirubin 0.2 mg/dL (0.2-1.0) Aspartate Amino Transf (AST/SGOT) 26 U/L (15-37) Alanine Aminotransferase (ALT/SGPT) 23 U/L (14-59) Alkaline Phosphatase 89 U/L (46-116) Total Protein 5.5 g/dL (6.4-8.2) Albumin 2.4 g/dL (3.4-5.0) Albumin/Globulin Ratio 0.8 (1.0-1.7) Brief Hospital Course Ms. Mccray is a 34 old AA female who was admitted for symptomatic uti and pyelo on CT, She grew GNR 2/2 bottles, co managed with ID, Waiting for IDentificn and sensitivities in blood (urine cx E coli, almost hinds sensitive), Once we have blood micro and sensitivity, home today on PO abx per ID with no PT needs, Requested work excuse consult: ID PRoc; none Discharge Information Condition at Discharge: Improved, Stable Disposition/Orders: D/C to Home Scheduled PRN Hydrocodone/Acetaminophen (Lortab 5-325 mg Tablet) 1 Each Tablet, 1 TAB PO PRN Q6HRS PRN for PAIN, #20 Ref 0 (Reported) Entered as Reported by: FLY ROD on 09/07/16 1247 Last Action: HELD on 07/26/19 0924 by STERLING NORTON Discontinued Medications Azithromycin (Zithromax) 250 Mg Tablet, 250 MG PO DAILY for ANTI-BIOTIC, #6 Ref 0 2 tablets today then 1 tablet daily until gone Prescribed by: RACHELL NEWMAN APRN on 01/08/17958 Last Action: HELD on 07/26/19924 by STERLING NORTON Fluconazole (Diflucan) 100 Mg Tablet, 100 MG PO DAILY, #3 (Reported) Entered as Reported by: FLY ROD on 09/07/16 124 Last Action: HELD on 07/26/19923 by STERLING NORTON Levofloxacin (Levaquin) 500 Mg Tablet, 1 TAB PO DAILY, #5 (Reported) Entered as Reported by: FLY ROD on 09/07/16 124 Last Action: HELD on 07/26/19923 by STERLING NORTON Metronidazole (Flagyl) 500 Mg Tablet, 1 TAB PO BID, #14 Prescribed by: Sera Baker APRN on 09/28/16 1533 Last Action: HELD on 07/26/19923 by STERLING NORTON Metronidazole (Flagyl) 500 Mg Tablet, 1 TAB PO BID, #14 Prescribed by: RACHELL NEWMAN APRN on 01/08/17958 Last Action: HELD on 07/26/19924 by STERLING NORTON Metronidazole (Flagyl) 500 Mg Tablet, 1 TAB PO BID, #14 Prescribed by: RACHELL NEWMAN APRN on 04/22/17 1504 Last Action: HELD on 07/26/19924 by STERLING NORTON Metronidazole (Flagyl) 500 Mg Tablet, 1 TAB PO BID, #14 Prescribed by: DILCIA NICOLAS on 10/20/17 1443 Last Action: HELD on 07/26/19924 by STERLING NORTON Metronidazole (Flagyl) 500 Mg Tablet, 1 TAB PO BID, #14 Prescribed by: FANTA JAFFE MD on 10/02/18 1054 Last Action: HELD on 07/26/19924 by STERLING NORTON Multivitamin (Multivitamins) 1 Each Tablet, 1 EACH PO DAILY for multivitamin, (Reported) Entered as Reported by: ROXIE ROBERTSON on 07/26/19617 Last Action: Converted on 07/26/19924 by STERLING NORTON Sulfamethoxazole/Trimethoprim (Bactrim Ds Tablet) 1 Each Tablet, 1 TAB PO BID, #6 Prescribed by: Sera Baker APRN on 09/28/16 1533 Last Action: HELD on 07/26/19 0925 by STERLING WILKS MD Jul 30, 2019 09:16
[2019-07-30 11:00] VITALS: BP 131/77
--- NOTE | 2019-07-30 11:40 | PDOC ---
Infectious Disease Note Subjective Subjective pt feels better No nausea, no vomiting fever resolved Urinating ok No rash Eating ROS ROS o/w neg Vital Sign Vital Signs Vital Signs Date Time Temp Pulse Resp B/P (MAP) Pulse Ox O2 Delivery O2 Flow Rate FiO2 07/30/19 07:00 97.5 72 16 141/93 (109) 95 Room Air 97.5 Physical Exam PHYSICAL EXAM GENERAL: Alert and oriented x 3 female, lying in bed comfortably, in no acute distress, cooperative, pleasant. laughing - in bed with 2 year old HEENT: Normocephalic, atraumatic. Anicteric. No thrush. NECK: Supple. No JVD. LUNGS: Clear bilaterally. No wheezing. HEART: S1, S2. No gallops, murmurs or rubs. ABDOMEN: Soft, nontender, nondistended. No rebound, no guarding. EXTREMITIES: No edema, no cyanosis, no clubbing. BACK: Reveals normal curvature. No CVA tenderness. DERMATOLOGIC: Warm, dry. No generalized rash. Multiple tattoos. NEUROLOGIC: Alert and oriented x 3. Grossly nonfocal. PSYCHIATRIC: Cooperative. Appropriate mood and affect. Labs Micro Urine URINE CULTURE RES 1 Final Escherichia coli Greater than 100,000 colony forming units per mL Performed at: - [facility] [address], [place], [place] [id number] Industrial Safety And Health Technician: KYLE Charles MD, Phone: [phone] Greater than 100,000 colony forming units per mL Cefazolin <=4 ug/mL Cefazolin with an NOLBERTO <=16 predicts susceptibility to the oral agents cefaclor, cefdinir, cefpodoxime, cefprozil, cefuroxime, cephalexin, and loracarbef when used for therapy of uncomplicated urinary tract infections due to E. coli, Klebsiella pneumoniae, and Proteus mirabilis. ANTIMICROBIAL SUSCEPTIBILITY Final Comment S = Susceptible; I = Intermediate; R = Resistant P = Positive; N = Negative MICS are expressed in micrograms per mL Antibiotic RSLT#1 RSLT#2 RSLT#3 RSLT#4 Amoxicillin/Clavulanic Acid S<=2 Ampicillin S<=2 Cefepime S<=0.12 Ceftriaxone S<=0.25 Cefuroxime S =4 Ciprofloxacin S<=0.25 Ertapenem S<=0.12 Gentamicin S<=1 Imipenem S<=0.25 Levofloxacin S<=0.12 Meropenem S<=0.25 Nitrofurantoin S<=16 Piperacillin/Tazobactam S<=4 CONTINUED ON NEXT PAGE RUN DATE: 07/29/19 PAGE 2 RUN TIME: 1211 [facility] [address] [place] [address] Rivera Hidalgo M.D., Operator Lights SPEC: [id number] PATIENT: MALOU BRUNER [id number] (Continued) Procedure Result ANTIMICROBIAL SUSCEPTIBILITY Final (continued) Tetracycline S<=1 Tobramycin S<=1 Microbiology 07/27/19 Blood Culture - Preliminary, Resulted NO GROWTH AFTER 1 DAY Objective Assessment 1. Fever - better. 2. Leukocytosis - better. 3. Gram-negative bacteremia ID and NOLBERTO pending, source genitourinary.- d/w [facility] later today or tomorrow will have result 4. Urinary tract infection. Ecoli 5. Likely nephrolithiasis. 6. Possible pyelonephritis.Pt says may have passed a possible stone 7. Acute kidney injury, improving. 8. Nausea and vomiting, improving. Plan Plan of Care 1. Discontinued Zosyn - began Rocephin 07/30 2. Follow up ID and NOLBERTO of gram-negative jaelyn in blood. when sensitivities available will adjust abx hopefully to po - likely Cephalexin 500 mg po QID and treat through 08/05 for pyelo 3. Continue supportive care. 4. she is requesting a screen for STD she states she asked in ER because she has been having discharge but it was not done. Also has h/o BV. May need 1 gm of Azithromycin D/w nursing PRITESH MEANS MD Jul 30, 2019 11:40
[2019-07-30] MEDS: cefTRIAXone IV Push 2 GM VIAL. IVP SCH (13:19)
[2019-07-30 15:00] VITALS: BP 147/97
[2019-07-30 19:00] VITALS: BP 141/78
[2019-07-30 23:00] VITALS: BP 105/57
[2019-07-31] MEDS: HYDROcodone/APAP 7.5/325MG 1 TAB TABLET PO PRN ×3 (02:23→14:20)
[2019-07-31 02:34] VITALS: BP 103/44
[2019-07-31 07:00] VITALS: BP 142/90
--- NOTE | 2019-07-31 08:12 | PDOC ---
Infectious Disease Note Subjective Subjective pt feels better. Occ pain still No nausea, no vomiting fever resolved Urinating ok. Has some Vaginal d/c at times No rash Eating ROS ROS o/w neg Vital Sign Vital Signs Vital Signs Date Time Temp Pulse Resp B/P (MAP) Pulse Ox O2 Delivery O2 Flow Rate FiO2 07/31/19 07:28 18 93 Room Air 07/31/19 07:00 97.5 66 142/90 (107) 97.5 Physical Exam PHYSICAL EXAM GENERAL: Alert and oriented x 3 female, lying in bed comfortably after ambulating in the room without problems, in no acute distress, cooperative, pleasant. HEENT: Normocephalic, atraumatic. Anicteric. No thrush. NECK: Supple. No JVD. LUNGS: Clear bilaterally. No wheezing. HEART: S1, S2. No gallops, murmurs or rubs. ABDOMEN: Soft, nontender, nondistended. No rebound, no guarding. EXTREMITIES: No edema, no cyanosis, no clubbing. BACK: Reveals normal curvature. No CVA tenderness. DERMATOLOGIC: Warm, dry. No generalized rash. Multiple tattoos. NEUROLOGIC: Alert and oriented x 3. Grossly nonfocal. PSYCHIATRIC: Cooperative. Appropriate mood and affect. Labs Micro BLOOD CULTURE LC Final Preliminary report Final report BLD CULT RESULT 1 Final Gram negative rods Escherichia coli Performed at: [facility] [id number], [place], [place] [id number] Invoice Control Clerk: KYLE Charles MD, Phone: [phone] ANTIMICROBIAL SUSCEPTIBILITY Final Comment S = Susceptible; I = Intermediate; R = Resistant P = Positive; N = Negative MICS are expressed in micrograms per mL Antibiotic RSLT#1 RSLT#2 RSLT#3 RSLT#4 Amoxicillin/Clavulanic Acid S<=2 Ampicillin S<=2 Cefepime S<=0.12 Ceftriaxone S<=0.25 Cefuroxime S =4 Ciprofloxacin S<=0.25 Ertapenem S<=0.12 Gentamicin S<=1 Imipenem S<=0.25 Levofloxacin S<=0.12 Meropenem S<=0.25 Piperacillin/Tazobactam S<=4 Tetracycline S<=1 Tobramycin S<=1 Trimethoprim/Sulfa S<=20 Urine URINE CULTURE RES 1 Final Escherichia coli Greater than 100,000 colony forming units per mL Performed at: DA - [facility] [place] [id number] [facility] [address], [place], [place] [id number] Invoice Control Clerk: KYLE Charles MD, Phone: [phone] Greater than 100,000 colony forming units per mL Cefazolin <=4 ug/mL Cefazolin with an NOLBERTO <=16 predicts susceptibility to the oral agents cefaclor, cefdinir, cefpodoxime, cefprozil, cefuroxime, cephalexin, and loracarbef when used for therapy of uncomplicated urinary tract infections due to E. coli, Klebsiella pneumoniae, and Proteus mirabilis. ANTIMICROBIAL SUSCEPTIBILITY Final Comment S = Susceptible; I = Intermediate; R = Resistant P = Positive; N = Negative MICS are expressed in micrograms per mL Antibiotic RSLT#1 RSLT#2 RSLT#3 RSLT#4 Amoxicillin/Clavulanic Acid S<=2 Ampicillin S<=2 Cefepime S<=0.12 Ceftriaxone S<=0.25 Cefuroxime S =4 Ciprofloxacin S<=0.25 Ertapenem S<=0.12 Gentamicin S<=1 Imipenem S<=0.25 Levofloxacin S<=0.12 Meropenem S<=0.25 Nitrofurantoin S<=16 Piperacillin/Tazobactam S<=4 CONTINUED ON NEXT PAGE RUN DATE: 07/29/19 PAGE 2 RUN TIME: 1211 [facility] [address] [place] [address] Rivera Hidalgo M.D., Battery Test Engineer SPEC: [id number] PATIENT: MALOU BRUNER [id number] (Continued) Procedure Result ANTIMICROBIAL SUSCEPTIBILITY Final (continued) Tetracycline S<=1 Tobramycin S<=1 Microbiology 07/27/19 Blood Culture - Preliminary, Resulted NO GROWTH AFTER 1 DAY Objective Assessment 1. Fever - better. 2. Leukocytosis - better. 3. Gram-negative bacteremia ID and NOLBERTO pending, source genitourinary.- d/w [facility] later today or tomorrow will have result 4. Urinary tract infection. Ecoli 5. Likely nephrolithiasis. 6. Possible pyelonephritis.Pt says may have passed a possible stone 7. Acute kidney injury, improving. 8. Nausea and vomiting, improving. Plan Plan of Care 1. Discontinued Zosyn - began Rocephin 07/30 will redose now times one 2. Home on po Cephalexin 500 mg po QID to start 08/01 and treat through 08/05 for pyelo 3. Azithromycin 1 gm times one has h/o chlamydia and is discharging today and sample yet to be collected 4. she is requesting a screen for STD she states she asked in ER because she has been having discharge but it was not done. Also has h/o BV - collecting this am but ordered 07/30 Recommend primary care and [facility] F/u ID office one week [phone] D/w nursing PRITESH MEANS MD Jul 31, 2019 08:12
[2019-07-31] MEDS ORDERED: AZITHROMYCIN 250 MG TABLET. PO ONE (09:00)
[2019-07-31] MEDS ORDERED: cefTRIAXone IV Push 2 GM VIAL. IVP ONE (09:00)
[2019-07-31] MEDS: LACTOBACILLUS RHAMNOSUS GG 1 CAPSULE. PO SCH (09:04)
[2019-07-31] MEDS: MULTIVITAMIN with MINERAL TABLET. PO SCH (09:04)
[2019-07-31 11:00] VITALS: BP 133/85
[2019-07-31] MEDS: ONDANSETRON ODT 4 MG TAB.RAPDIS. PO PRN (11:32)
--- NOTE | 2019-07-31 11:48 | PDOC ---
[employer] PROGRESS NOTE Chief Complaint Chief Complaint Symptomatic UTI with pyelonephritis, Dilated RT ureter- no radio opaque/radio luscent stone GNR bacteremia 2/2 bottles History of Present Illness History of Present Illness 07/31/19 Pt seen and examined at bedside Pt appears better and is eager to get back to work D/w RN 07/29/19 Pt seen and examined at bedside Pt appears better, but still complaining of pain. D/w RN 07/28/19 Pt seen and examined at bedside Pt looks better Still some nausea but appears to be consuming her food Vitals/I&O Vitals/I&O: Vital Signs Date Time Temp Pulse Resp B/P (MAP) Pulse Ox O2 Delivery O2 Flow Rate FiO2 07/31/19 08:41 14 93 Room Air 07/31/19 07:00 97.5 66 142/90 (107) 97.5 I & O 07/30/19 07/30/19 07/31/19 15:00 23:00 07:00 Intake Total 460 ml 180 ml Balance 460 ml 180 ml Physical Exam Physical Exam: GENERAL: Alert and oriented x 3 female, lying in bed comfortably after ambulating in the room without problems, in no acute distress, cooperative, pleasant. HEENT: Normocephalic, atraumatic. Anicteric. No thrush. NECK: Supple. No JVD. LUNGS: Clear bilaterally. No wheezing. HEART: S1, S2. No gallops, murmurs or rubs. ABDOMEN: Soft, nontender, nondistended. No rebound, no guarding. EXTREMITIES: No edema, no cyanosis, no clubbing. BACK: Reveals normal curvature. No CVA tenderness. DERMATOLOGIC: Warm, dry. No generalized rash. Multiple tattoos. NEUROLOGIC: Alert and oriented x 3. Grossly nonfocal. PSYCHIATRIC: Cooperative. Appropriate mood and affect. General: Alert, Oriented X3, Cooperative, No acute distress Lungs: Clear Abdomen: Soft, Other (rt sided flank pain) Extremities: No clubbing, No cyanosis, No edema, Normal pulses, No tenderness/swelling Skin: No rashes, No breakdown, No significant lesion Review of Systems Review of Systems: Pt co pain Pt no co COULTER Assessment and Plan Assessmemt and Plan Problems Medical Problems: (1) MARIN (acute kidney injury) Status: Acute (2) Fever Status: Acute (3) Gram-negative bacteremia Status: Acute (4) Pyelonephritis Status: Acute (5) UTI (lower urinary tract infection) Status: Acute Assessment Pyelonephritis w UTI Acute kidney injury Nausea and vomiting Plan Discharge when ID gives ok Hope to encourage PO Abx Full Code Reconcile home meds Left prescriptions for Lortab and Return to Work (for 08/04/19) Comment Review of Relevant I have reviewed the following items jessenia (where applicable) has been applied. Medications: Current Medications Medications (Trade) Dose Ordered Sig/Marc Route PRN Reason Start Time Stop Time Status Last Admin Dose Admin Ceftriaxone Sodium (Rocephin) 2 gm 1X ONCE IVP 07/31/19 09:00 07/31/19 09:01 DC 07/31/19 09:05 Azithromycin (Zithromax) 1,000 mg 1X ONCE PO 07/31/19 09:00 07/31/19 09:01 DC 07/31/19 09:05 BARB READ III DO Jul 31, 2019 11:48
--- NOTE | 2019-07-31 15:35 | NUR ---
Discharge Note: MALOU BRUNER Discharge instructions and discharge home medications reviewed with Patient and a copy given. All questions have been answered and understanding verbalized. The following instructions and handouts were given: Discharge Instructions, Follow Up Instrutions, Prescriptions Discontinued lines and drains: PIV removed, Catheter intact. Patient discharged to Home with Self-Care via Private Vehicle
== END 2019-07-31 14:30 | disposition home or self-care (01) | DRG 871 ==
LOC: ER 19:21 → 4 NORTH 21:23
PROVIDERS: ADMIT Internal Medicine; ATTEND Internal Medicine
DX: A41.50 Gram-negative sepsis, unspecified (principal); N17.0 Acute kidney failure with tubular necrosis; N12 Tubulo-interstitial nephritis, not specified as acute or chronic; N20.0 Calculus of kidney; R32 Unspecified urinary incontinence; B96.20 Unspecified Escherichia coli [E. coli] as the cause of diseases classified elsewhere; B96.1 Klebsiella pneumoniae [K. pneumoniae] as the cause of diseases classified elsewhere; B96.4 Proteus (mirabilis) (morganii) as the cause of diseases classified elsewhere; Z98.891 History of uterine scar from previous surgery; Z88.8 Allergy status to other drugs, medicaments and biological substances; Z82.49 Family history of ischemic heart disease and other diseases of the circulatory system
CPT/HCPCS: 36415; 74176; 76770; 80048; 80053; 81001; 81025; 83605; 83690; 85007; 85025; 87040; 87077; 87086; 87186; 87205; 87491; 87591; 87804; 96361; 96374; 96375; 96376; J0696; J0780; J2270; J2405; J2543; J7030; Q0144; Q0162; 99285-25; G0378

== ENCOUNTER 2019-08-07 11:54 | Emergency (ER) | payer OTHER ==
[~2019-08-07] VITALS: Ht 167.6 cm; Wt 74.8 kg
[~2019-08-07 11:54] MED LIST changes: +MULT1TAB52 PO
[2019-08-07 12:31] VITALS: BP 147/63
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
[2019-08-07] MEDS ORDERED: CYCL10TA2 PO (14:14)
[2019-08-07] MEDS ORDERED: HYDR-3164 PO (14:14)
== END 2019-08-07 14:23 | disposition home or self-care (01) ==
LOC: ER 11:54
DX: M25.512 Pain in left shoulder (principal); M25.552 Pain in left hip; R07.89 Other chest pain; Z88.4 Allergy status to anesthetic agent; M25.532 Pain in left wrist; V49.88XA Car occupant (driver) (passenger) injured in other specified transport accidents, initial encounter; Y93.89 Activity, other specified; Y92.488 Other paved roadways as the place of occurrence of the external cause; Y99.8 Other external cause status
CPT/HCPCS: 71046; 73030; 73110; 73502; 81025; 99284

== ENCOUNTER 2019-09-15 20:30 | Emergency (ER) | payer OTHER ==
[~2019-09-15] VITALS: Ht 167.6 cm; Wt 74.8 kg
[~2019-09-15 20:30] MED LIST changes: +CYCL10TA2 PO; +HYDR-3164 PO
[2019-09-15 20:55] VITALS: BP 151/89
[2019-09-15 21:19] LABS: BILIRUBIN,URINE NEGATIVE (NEG); CLARITY,URINE CLEAR; COLOR,URINE YELLOW; NITRITE,URINE NEGATIVE (NEG); PH,URINE 6.5; PROTEIN,URINE NEGATIVE (NEG-TRACE); UROBILINOGEN,URINE 0.2 mg/dL (0.2 mg/dL)
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
[2019-09-15 21:45] LABS: BACTERIA,URINE FEW /HPF (0-FEW); RBC,URINE OCC /HPF (0-2); SQUAMOUS EPITHELIAL CELL,UR OCC /LPF
[2019-09-15] MEDS ORDERED: METR500T PO (22:39)
[2019-09-17 17:09] LABS: GC PROBE Negative (Negative)
== END 2019-09-15 22:56 | disposition home or self-care (01) ==
LOC: ER 20:30
DX: N76.0 Acute vaginitis (principal); B96.89 Other specified bacterial agents as the cause of diseases classified elsewhere; Z98.890 Other specified postprocedural states; Z88.8 Allergy status to other drugs, medicaments and biological substances
CPT/HCPCS: 81001; 81025; 87491; 87591; 99284; Q0111

== ENCOUNTER 2019-11-06 21:10 | Emergency (ER) | payer OTHER ==
[~2019-11-06] VITALS: Ht 170.2 cm; Wt 74.8 kg
[2019-11-06 22:29] LABS: BILIRUBIN,URINE NEGATIVE (NEG); CLARITY,URINE CLOUDY; COLOR,URINE YELLOW; NITRITE,URINE NEGATIVE (NEG); PROTEIN,URINE NEGATIVE (NEG-TRACE); UROBILINOGEN,URINE 0.2 mg/dL (0.2 mg/dL)
[2019-11-06 22:45] VITALS: BP 125/58
[2019-11-06 22:46] LABS: BACTERIA,URINE MODERATE /HPF (0-FEW); RBC,URINE 0 /HPF (0-2); SQUAMOUS EPITHELIAL CELL,UR MANY /LPF
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
[2019-11-06] MEDS ORDERED: CEPH-264 PO (23:58)
[2019-11-06] MEDS ORDERED: METR-34 PO (23:58)
[2019-11-07] MEDS: ONDANSETRON ODT 4 MG TAB.RAPDIS. PO ONE (00:04)
[2019-11-07] MEDS: AZITHROMYCIN 250 MG TABLET. PO ONE (00:05)
[2019-11-07] MEDS: cefTRIAXone IM 250 MG VIAL IM ONE (00:05)
== END 2019-11-07 00:05 | disposition home or self-care (01) ==
LOC: ER 21:10
DX: N39.0 Urinary tract infection, site not specified (principal); N76.0 Acute vaginitis; B96.89 Other specified bacterial agents as the cause of diseases classified elsewhere; Z88.4 Allergy status to anesthetic agent
CPT/HCPCS: 81001; 81025; 87086; 87491; 87591; 96372; 99284; J0696; Q0111; Q0144; Q0162

== ENCOUNTER 2020-06-11 23:29 | Emergency (ER) | payer OTHER ==
[~2020-06-11] VITALS: Ht 167.6 cm; Wt 64.0 kg
[~2020-06-11 23:29] MED LIST changes: +CEPH-264 PO; +METR-34 PO; +MULT-445 PO; -MULT1TAB52 PO
[2020-06-12] MEDS ORDERED: CYCL10TA2 PO (00:22)
[2020-06-12] MEDS ORDERED: DICL50TA2 PO (00:22)
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
[2020-06-12 00:35] VITALS: BP 137/78
== END 2020-06-12 00:40 | disposition home or self-care (01) ==
LOC: ER 23:29
DX: S40.012A Contusion of left shoulder, initial encounter (principal); S80.12XA Contusion of left lower leg, initial encounter; Z72.0 Tobacco use; Z88.5 Allergy status to narcotic agent; V49.88XA Car occupant (driver) (passenger) injured in other specified transport accidents, initial encounter; Y92.488 Other paved roadways as the place of occurrence of the external cause; Y93.89 Activity, other specified; Y99.8 Other external cause status
CPT/HCPCS: 99283